=== PATIENT | male | born 1990 | race Caucasian/White ===

== ENCOUNTER → 2018-02-20 15:12 | Outpatient (CLI) | payer OTHER, SELFPAY ==
--- NOTE | 2018-02-20 15:00 | LES_PTH ---
PATIENT: THAO DAVID III LOC: [facility] U#:[id number] AGE/SX: 35/M ROOM: RE02/20/[address]: Dr. Tonny Aquino, : 1990 BED: DIS: SPEC #: [id number] RECD: 02/20/18 17:22 STATUS: MICHELLE TARIK #: [id number] YOUSUF: 02/20/18 15:[address]: Tonny Aquino DEPT: SURGICAL PATHOLOGY RECD BY: Mark Anthony Matute Tissues: Skin of upper extremity and shoulder Procedures: Surgery Specimen Level IV HEADER OPERATION: Punch biopsy PRE-OP DIAGNOSIS: Bleeding nevus, inflamed nevus, less likely cancer TISSUE SUBMITTED: 3 mm punch right shoulder MICROSCOPIC DIAGNOSIS Right shoulder nevus, punch biopsy: Intradermal nevus. Negative for malignancy. SJ:shanique 02/24/18 MICROSCOPIC DESCRIPTION Slides are reviewed. GROSS DESCRIPTION Received in fixative is one container labeled with the patient's name and designated right shoulder nevus. The specimen consists of a punch biopsy of atkinson-white skin measuring 0.2 cm in length and 0.2 cm in diameter. The specimen is totally submitted in one cassette. / SJ:rg 02/23/18 TC:1 CPT: 26012
== END ==
PROVIDERS: Family Provider Family Medicine; PCP Family Medicine; Visit Provider Family Medicine
DX: D22.61 Melanocytic nevi of right upper limb, including shoulder (principal)
CPT/HCPCS: 88305

== ENCOUNTER → 2018-07-09 16:51 | Outpatient (CLI) | payer BC, SELFPAY ==
[2018-07-09 18:09] LABS: Absolute Lymphocyte Count 1.97 X10^3/ul (0.83-4.51); Absolute Neutrophil Count 4.2 X10^3/uL (2.0-7.7); Basophil# 0.04 X10^3/uL; Basophil% 0.6 % (0-1); Eosinophil# 0.06 X10^3/uL; Eosinophils% 0.9 % (0-5); Hematocrit 44.2 % (40-54); Hemoglobin 14.6 g/dl (13.0-16.5); Lymphocyte # 1.97 X10^3/ul (4.0); Lymphocyte % 28.6 % (19-41); Mean Corpuscular Hgb 29.3 pg (27.0-32.0); Mean Corpuscular Volume 88.8 fL (80-94); Mean Platelet Vol. 10.8 fl (6.2-12.0); Monocyte# 0.58 X10^3/uL; Monocyte% 8.4 % (0-10); Neutrophil # 4.22 X10^3/uL (2.7-7.7); Neutrophil % 61.4 % (47-70); Platelet Count 208 K/mm3 (150-450); RBC Distribution Width CV 12.4 % (11.6-14.6); RBC Distribution Width SD 39.4 fl (35.1-43.9); Red Blood Count 4.98 M/mm3 (4.6-6.2); White Blood Count 6.9 K/mm3 (4.4-11.0)
[2018-07-09 18:12] LABS: ALB/GLOB Ratio 1.2 RATIO (0.9-2.4); AST(SGOT) 21 U/L (15-37); Alanine Aminotransfer ALT/SGPT 26 U/L (16-61); Albumin, Serum 4.2 g/dL (3.2-5.0); Alkaline Phosphatase 47 U/L (45-117); Anion Gap 9 (5-15); BUN 11 mg/dL (7-18); BUN/Creat Ratio 9.8 RATIO (10-20); Chloride 105 mmol/L (98-107); Creatinine, Serum 1.12 mg/dL (0.70-1.30); EST Glomerular Filtration Rate 84 mL/min (>60); Est Glom Filt Rate - Afr Amer 102 mL/min (>60); Globulin 3.5 g/dL (2.2-4.2); Glucose 85 mg/dL (74-106); Potassium 3.6 mmol/L (3.5-5.1); Protein, Total 7.7 g/dL (6.4-8.2); Sodium Level 142 mmol/L (136-145)
[2018-07-09 18:15] LABS: POSITIVE COUNT NO; POSITIVE DIFFERENTIAL NO; POSITIVE MORPHOLOGY NO
== END ==
PROVIDERS: Family Provider Family Medicine; PCP Family Medicine; Visit Provider Family Medicine
DX: R10.9 Unspecified abdominal pain (principal); R19.7 Diarrhea, unspecified
CPT/HCPCS: 36415; 80053; 85025

== ENCOUNTER 2020-01-23 13:22 | Emergency (ER) | payer BC, SELFPAY ==
[2019-12-23 12:54] VITALS: BMI 27.9
[2020-01-23 13:23] VITALS: BP 166/94; PULSE 109; RESP 16; TEMP 36.6; O2SAT 100; BMI 26.6
--- NOTE | 2020-01-23 13:38 | CT_ITS ---
STUDY: CT ABDOMEN AND PELVIS WITH CONTRAST REASON FOR EXAM: Male, 30 years old. Abdominal pain. Blood in stool. RADIATION DOSAGE (If Supplied By Facility): CTDIvol = ( 12.48 ) mGy, DLP = ( 603.71 ) mGycm TECHNIQUE: Transaxial images were obtained from the dome of the diaphragm to the symphysis pubis with oral contrast. Oral and amp; IV Gastrografin and amp; 100mL Isovue-300 was administered. Sagittal and coronal images were reconstructed. Individualized dose optimization techniques were used for this CT. COMPARISON: None. FINDINGS: The visualized lung bases are unremarkable. The visualized portions of the heart are within normal limits. Normal liver. Normal gallbladder and extrahepatic biliary system. Normal spleen. Normal pancreas. Normal bilateral adrenal glands. Normal right kidney. Normal left kidney. Normal visualized stomach. Normal small intestine. There are multiple colonic diverticula of the sigmoid consistent with diverticulosis. Otherwise unremarkable colon The appendix is visualized and appears normal. Normal abdominal aorta. Normal inferior vena cava. Normal retroperitoneum. Normal urinary bladder. Normal abdominal wall. Normal osseous structures. CT/Abdomen/Pelvis WITH Contrast IMPRESSION: No definite acute or significant abnormality seen. Electronically Signed: Bimal Pettit MD at 16:16 EST , Service support ,
--- NOTE | 2020-01-23 13:40 | ED.VIS.GEN ---
History of Present Illness Chief Complaint: Abd Pain Informant: Patient Onset: Today Current Severity: Mild Maximum Severity: Moderate Narrative: Patient presents with epigastric abdominal pain that really worsened today. He stated he had some mild pain 4 days ago but it seemed to resolve. Pain recurred again this morning. He did note some blood with his stool this morning as well. Patient states he has had some sinus congestion and yesterday had some pain with deep breath. He related to have a cough and has not had any recurrence of that. Patient reports history of stomach problems. He states he has had prior colonoscopy and a GI follow-through without any definite diagnosis. His grandfather had colon cancer. Past Medical History - Allergies and Home Meds Allergies/Adverse Reactions: Allergies No Known Allergies Allergy (Verified 01/23/20 13:25) Primary Care Physician: Tonny Aquino DO [Primary Care Provider] - Past Medical History: - - Stomach problems Smoking Status: Unknown if ever smoked Review of Systems General: Denies: Chills, Fever Eyes: Denies: Visual changes - bilaterally ENT: Denies: Bilateral ear pain Cardiovascular: Denies: Chest pain Respiratory: Denies: Dyspnea, Cough Gastrointestinal: Reports: Abdominal pain, Hematochezia. Denies: Nausea, Vomiting, Diarrhea Genitourinary: Denies: Dysuria Musculoskeletal: Denies: Swelling, Extremity Pain Skin: Denies: Rash Neurological: Denies: Headache Psych: Denies: Depression, Anxiety Allergy: Denies: Uticaria Physical Exam Vital Signs/Narrative: Vital Signs Temp Pulse Resp BP Pulse Ox 01/23/20 13:23 98 F 109 H 16 166/94 H 100 Inital Vital Signs reviewed: Yes General: Well nourished, Well developed Head: Normocephalic ENT: Moist mucous membranes Neck: Supple Cardiovascular: Regular rate, Regular rhythm Respiratory: No distress, CTA bilaterally Abdomen: Soft, Nontender, Hypoactive bowel sounds Extremities: Nontender Skin: Normal color Neurological: Alert, Oriented x3 Psychological: Normal affect Diagnostic/Tx/Re-eval Impressions Abdomen/Pelvis CT 01/23/20 13:38 IMPRESSION: No definite acute or significant abnormality seen. Electronically Signed: Bimal Pettit MD at 16:16 EST , Service support , 01/23/20 13:38 Abdomen/Pelvis WITH Contrast [CT] Stat Laboratory Results 01/23/20 01/23/20 13:50 13:50 WBC 6.0 RBC 5.26 Hgb 15.6 Hct 46.8 MCV 89.0 MCH 29.7 MCHC 33.3 RDW Std Deviation 39.0 RDW Coeff of Melinda 11.9 Plt Count 214 MPV 10.3 Immature Gran % (Auto) 0.300 Neut % (Auto) 60.3 Lymph % (Auto) 29.7 Hutchinson % (Auto) 8.7 Eos % (Auto) 0.5 Baso % (Auto) 0.5 Absolute Neuts (auto) 3.6 Absolute Lymphs (auto) 1.77 Nucleated RBC % 0 Sodium 140 Potassium 3.7 Chloride 105 Carbon Dioxide 30.0 Anion Gap 5 BUN 14 Creatinine 1.19 Estim Creat Clear Calc 83.40 Est GFR (MDRD) Af Amer 94 Est GFR (MDRD) Non-Af 77 BUN/Creatinine Ratio 11.8 Glucose 96 Calcium 9.2 Total Bilirubin 0.30 Direct Bilirubin 0.12 AST 33 ALT 56 Alkaline Phosphatase 54 Total Protein 7.7 Albumin 4.0 Globulin 3.7 Lipase 203 - Medical Decision Making Patient declined anything for pain while here. Test results are discussed with him. He is reassured with these findings. He now mentions that he is been taking some supplements [id number] as well and is wondering if that may be causing his symptoms. I encouraged him to stop them for a while to see if his symptoms improve. He will follow with his primary care physician. He is to return for worsening symptoms or concerns. ED Disposition - Plan for ED Patient: Disposition: Home or Assisted Living Diagnosis: Abdominal pain Instructions: ABDOMINAL PAIN, Unkown Cause, (Male) Referrals: Herbert Tejada MD [NON-STAFF] - As Needed Tonny Aquino DO [Primary Care Provider] - 5-7 Days
[2020-01-23 14:11] LABS: Absolute Lymphocyte Count 1.77 X10^3/uL (0.83-4.51); Absolute Neutrophil Count 3.6 X10^3/uL (2.0-7.7); Basophil# 0.03 X10^3/uL; Basophil% 0.5 % (0-1); Eosinophil# 0.03 X10^3/uL; Eosinophils% 0.5 % (0-5); Hematocrit 46.8 % (40-54); Hemoglobin 15.6 g/dL (13.0-16.5); Lymphocyte # 1.77 X10^3/ul (4.0); Lymphocyte % 29.7 % (19-41); Mean Corp Hgb Conc 33.3 g/dL (32-36); Mean Corpuscular Hgb 29.7 pg (27.0-32.0); Mean Platelet Vol. 10.3 fl (6.2-12.0); Monocyte# 0.52 X10^3/uL; Monocyte% 8.7 % (0-10); NRBC Flagged by Analyzer 0 % (0-5); Neutrophil # 3.59 X10^3/uL (2.7-7.7); Neutrophil % 60.3 % (47-70); Platelet Count 214 K/mm3 (150-450); RBC Distribution Width CV 11.9 % (11.6-14.6); Red Blood Count 5.26 M/mm3 (4.6-6.2)
[2020-01-23] MEDS: 0.9% Normal Saline 1,000 ML 150 ML IV (14:11)
[2020-01-23 14:27] LABS: AST(SGOT) 33 U/L (15-37); Alanine Aminotransfer ALT/SGPT 56 U/L (16-61); Alkaline Phosphatase 54 U/L (45-117); Anion Gap 5 (5-15); BUN 14 mg/dL (7-18); BUN/Creat Ratio 11.8 RATIO (10-20); Bilirubin, Direct 0.12 mg/dL (0.00-0.30); Calcium,Total 9.2 mg/dL (8.5-10.1); Chloride 105 mmol/L (98-107); Creatinine, Serum 1.19 mg/dL (0.70-1.30); EST Glomerular Filtration Rate 77 mL/min (>60); Est Glom Filt Rate - Afr Amer 94 mL/min (>60); Globulin 3.7 g/dL (2.2-4.2); Glucose 96 mg/dL (74-106); Lipase 203 U/L (73-393); Potassium 3.7 mmol/L (3.5-5.1); Protein, Total 7.7 g/dL (6.4-8.2); Sodium Level 140 mmol/L (136-145)
[2020-01-23 16:35] VITALS: PULSE 78; RESP 18; O2SAT 99
== END 2020-01-23 16:37 | disposition home or self-care (01) ==
PROVIDERS: Emergency Provider Emergency Medicine; PCP Family Medicine
DX: R10.9 Unspecified abdominal pain (principal); R05 Cough; Z80.0 Family history of malignant neoplasm of digestive organs
CPT/HCPCS: 74177; 80048; 80076; 83690; 85025; 96360; 96361; 99283; Q9967; A4216

== ENCOUNTER 2020-11-06 00:24 | Emergency (ER) | payer BC, SELFPAY ==
[2020-02-20 09:05] VITALS: BMI 26.6
[2020-11-06 00:24] VITALS: BP 139/99; PULSE 78; RESP 16; TEMP 36.7; O2SAT 99; BMI 27.6
[2020-11-06 00:27] VITALS: BP 139/99; PULSE 77; RESP 16; TEMP 36.7; O2SAT 97
--- NOTE | 2020-11-06 00:32 | CT_ITS ---
STUDY: CT ABDOMEN AND PELVIS WITH CONTRAST REASON FOR EXAM: Male, 30 years old. RUQ AND RLQ PAIN WITH N/V/D SINCE 2PM RADIATION DOSAGE (If Supplied By Facility): CTDIvol = ( 10.18 ) mGy, DLP = ( 540.73 ) mGycm TECHNIQUE: Transaxial images were obtained from the dome of the diaphragm to the symphysis pubis without oral contrast. IV 100mL Isovue-370 was administered. Sagittal and coronal images were reconstructed. Individualized dose optimization techniques were used for this CT. COMPARISON: None. FINDINGS: The visualized lung bases are unremarkable. The visualized portions of the heart are within normal limits. Normal liver. Normal gallbladder and extrahepatic biliary system. Normal spleen. Normal pancreas. Normal bilateral adrenal glands. Normal right kidney. Normal left kidney. Normal visualized stomach. Multiple loops of small bowel distended within the mid upper abdomen up to a diameter of 2.6 cm. There are loops of small bowel distally with narrowing of the diameter of thickening of the wall consistent with enteritis. Differential diagnosis includes inflammatory bowel disease, correlation with history of Crohn''s disease recommended. The descending colon is decompressed. There is thickening of the wall throughout the transverse colon and at the level of the hepatic and splenic flexure concerning for colitis. The appendix is visualized and appears normal. Normal abdominal aorta. Normal inferior vena cava. Normal retroperitoneum. Normal urinary bladder. Normal abdominal wall. Normal osseous structures. CT/Abdomen/Pelvis W IV Cont ONLY IMPRESSION: Findings consistent with enteritis/enterocolitis, differential diagnosis including inflammatory bowel disease, correlation with history of Crohn''s recommended. Some degree of partial small bowel obstruction related to areas of strictures there may exist in the areas of thickening of the wall of the small bowel to be considered. Electronically Signed: Susan Ramirez MD at 1:45 EST , Service support ,
--- NOTE | 2020-11-06 00:33 | ED.VISSUMM ---
- ER Visit Summary Date of Service: 11/06/20 Chief Complaint: Right upper quadrant abdominal pain History of Present Illness: The patient is a 30 M no significant past medical history. Prior GI symptoms of the colonoscopy without diagnosis. Patient states 2 PM today he had onset of epigastric and right upper quadrant abdominal pain. Associated with nausea, vomiting and diarrhea. He denies any fever or chills. He denies any dysuria. He denies any hematemesis or melena. Denies any abdominal trauma. Denies any prior abdominal surgeries. Denies any recent exposure to anyone with similar symptoms. States pain is cramping. Physical Examination: Young male no acute distress. Vital signs stable afebrile. H EENT exam unremarkable. Neck nontender. Lungs clear to auscultation. Heart regular rhythm no murmur. Abdomen is soft. Nondistended. Normal bowel sounds. He is tender primarily in the right upper quadrant. Mildly in the right lower quadrant. There is no obvious hernias or masses. No obvious signs of obstruction. No signs of trauma. Patient is moving all 4 extremities. There is no edema. Neurovascularly intact. Back is nontender. Neurologically is awake alert with no focal motor deficits. Test Results: CBC shows slightly elevated white count 12.8. Hemoglobin is 17. No bands. Chemistries are normal normal creatinine and gap. Liver enzymes are normal except ALT elevated 77. Lipase is normal at 143. CAT scan the abdomen pelvis with IV contrast was performed and read by the radiologist. Consistent with enteritis. The appendix was visualized and was read as normal. This was read by the radiologist and reviewed by me. Multiple repeat exams the last 1 at 2:18 AM. Patient is doing well. Feeling better after medications and IV fluids. Abdomen is benign. Emergency Department Course and Treatment: Patient with right upper quadrant abdominal pain mild right lower quadrant. Associated nausea, vomiting and diarrhea. This very well may be gastroenteritis. He is tender on exam imaging and labs are being obtained. Will be treated with IV fluids, IV Toradol and Zofran. Treatment Plan: Plenty of fluids and rest. Tylenol for pain. Zofran for nausea. If not improving follow-up with primary care physician if worse return to the ER. Disposition: Discharge Impression: Acute right-sided abdominal pain Nausea, vomiting and diarrhea secondary to viral gastroenteritis This note was generated with [employer] software. It may contain incorrect words, spelling, and punctuation that were not noted in review of the chart prior to signing ED Disposition - Plan for ED Patient: Disposition: Home or Assisted Living Instructions: ED Gastroenteritis, Viral (Adult) Prescriptions: Ondansetron [Zofran Odt] 4 mg PO Q8H PRN PRN #10 tab PRN Reason: Nausea Prescription Printed Referrals: Tonny Aquino DO [Primary Care Provider] - 3-5 Days if not improving Additional Instructions: [place] diet. Increase slowly as tolerated. Plenty of fluids and rest. Zofran as needed for nausea. Tylenol for any pain. Follow-up with your doctor if not improving. Return to the emergency department if you are feeling worse such as increasing pain or intractable vomiting.
[2020-11-06 00:37] LABS: Absolute Lymphocyte Count 2.15 X10^3/uL (0.83-4.51); Absolute Neutrophil Count 9.5 X10^3/uL (2.0-7.7); Basophil# 0.05 X10^3/uL; Basophil% 0.4 % (0-1); Eosinophil# 0.09 X10^3/uL; Eosinophils% 0.7 % (0-5); Hematocrit 50.9 % (40-54); Hemoglobin 17.3 g/dL (13.0-16.5); Lymphocyte # 2.15 X10^3/ul (4.0); Lymphocyte % 16.8 % (19-41); Mean Corpuscular Hgb 30.4 pg (27.0-32.0); Mean Corpuscular Volume 89.3 fL (80-94); Mean Platelet Vol. 9.9 fl (6.2-12.0); Monocyte# 0.98 X10^3/uL; Monocyte% 7.7 % (0-10); NRBC Flagged by Analyzer 0 % (0-5); Neutrophil % 74.1 % (47-70); Platelet Count 244 K/mm3 (150-450); RBC Distribution Width CV 12.2 % (11.6-14.6); RBC Distribution Width SD 39.8 fl (35.1-43.9); White Blood Count 12.8 K/mm3 (4.4-11.0)
[2020-11-06] MEDS: Ketorolac 30 MG/ML Syringe IV (00:38)
[2020-11-06] MEDS: 0.9% Normal Saline 1,000 ML 1000 ML IV (00:38)
[2020-11-06] MEDS: Ondansetron 4 MG/2 ML Vial IV (00:38)
[2020-11-06 00:55] LABS: AST(SGOT) 32 U/L (15-37); Alanine Aminotransfer ALT/SGPT 77 U/L (16-61); Albumin, Serum 4.5 g/dL (3.2-5.0); Alkaline Phosphatase 58 U/L (45-117); Anion Gap 5 (5-15); BUN 17 mg/dL (7-18); BUN/Creat Ratio 15.2 RATIO (10-20); Bilirubin, Direct 0.22 mg/dL (0.00-0.30); Calcium,Total 9.3 mg/dL (8.5-10.1); Chloride 107 mmol/L (98-107); Creatinine, Serum 1.12 mg/dL (0.70-1.30); EST Glomerular Filtration Rate 83 mL/min (>60); Est Glom Filt Rate - Afr Amer 100 mL/min (>60); Estimated Creatinine Clearance 88.61 ml/min; Globulin 3.9 g/dL (2.2-4.2); Glucose 99 mg/dL (74-106); Lipase 143 U/L (73-393); Potassium 3.9 mmol/L (3.5-5.1); Protein, Total 8.4 g/dL (6.4-8.2); Sodium Level 139 mmol/L (136-145)
--- NOTE | 2020-11-06 01:21 | ED.DEP ---
ED Disposition - Plan for ED Patient: Disposition: Home or Assisted Living Instructions: ED Gastroenteritis, Viral (Adult) Prescriptions: Ondansetron [Zofran Odt] 4 mg PO Q8H PRN PRN #10 tab PRN Reason: Nausea Prescription Printed Referrals: Tonny Aqiuno DO [Primary Care Provider] - 3-5 Days if not improving Additional Instructions: [place] diet. Increase slowly as tolerated. Plenty of fluids and rest. Zofran as needed for nausea. Tylenol for any pain. Follow-up with your doctor if not improving. Return to the emergency department if you are feeling worse such as increasing pain or intractable vomiting.
[2020-11-06 02:31] VITALS: BP 111/64; PULSE 78; RESP 18; O2SAT 95
== END 2020-11-06 02:35 | disposition home or self-care (01) ==
PROVIDERS: Emergency Provider Emergency Medicine; PCP Family Medicine
DX: A08.4 Viral intestinal infection, unspecified (principal)
CPT/HCPCS: 74177; 80048; 80076; 83690; 85025; 96361; 96374; 96375; 99283; J7030; Q9967; A4216; J2405

== ENCOUNTER 2020-11-06 09:59 | Inpatient (IN) | payer BC, SELFPAY ==
[2020-11-06 00:24] VITALS: BMI 27.6
[2020-11-06 10:00] VITALS: BP 141/90; PULSE 91; RESP 18; TEMP 36.4; O2SAT 97; BMI 24.2
--- NOTE | 2020-11-06 10:16 | ED.DCSUM_ITS ---
- ER Visit Summary Date of Service: 11/06/20 Chief Complaint: [Abdominal pain] History of Present Illness: The patient is a 30 M [presents to the emergency department complaint of abdominal pain since 2 PM yesterday afternoon. Patient states the pain came on gradually. Patient describes nausea and vomiting that is been frequent and he has had some intermittent diarrhea but no blood in the stool. Patient was seen in the emergency department earlier this morning and had lab work including a CT scan of the abdomen pelvis. Patient was diagnosed with a viral gastroenteritis and discharged home. Patient states he had a mild cough. Patient's had intermittent headaches for the last week. Patient denies any significant body aches or sore throat. He denies any direct exposures to COVID-19 although he states that one of his coworkers wives tested positive. Patient's had low-grade fevers up to 99 6. Patient otherwise has no medical history. Patient's not had any prior surgical history.] Physical Examination: [HEENT-PERRLA, EOMI. Cranial nerves II through XII grossly intact. TMs clear. Mucous membranes moist. No adenopathy. Cardiovascular-regular rate and rhythm without murmur or ectopy Lungs-clear to auscultation, chest wall stable without crepitus or subcu emp hysema Abdomen-normoactive bowel sounds, soft. Patient does have tenderness palpation over the right upper quadrant and right lower quadrant. No rebound, rigidity, or peritoneal signs. Extremities-intact ?4, normal range of motion, normal pulses, atraumatic] Test Results: [CBC with differential obtained showed a slightly elevated white blood cell count of 11.7, hemoglobin 16.6, hematocrit 49.2, and platelets 225. Chemistries were unremarkable. LFTs obtained showed a elevated total bilirubin of 1.2 as well as an elevated ALT of 68 and slight elevated AST of 42. Lactate was normal at 1.0. Gallbladder ultrasound ordered which showed possible adenomyomatosis of the gallbladder wall otherwise nothing acute.] Emergency Department Course and Treatment: [IV line established. Patient was medicated with morphine and Zofran.] Patient continued to have pain and was given a second dose of morphine and Zofran. Stool was ordered for enteric pathogens and those results will be pending Treatment Plan: [Admit for pain control and IV fluids] Disposition: [Admit] Impression: [Intractable abdominal pain Intractable nausea and vomiting Gastroenteritis] This note was generated with [employer] dictation software. It may contain incorrect words, spelling, and punctuation that were not noted in review of the chart prior to signing ED Disposition - Plan for ED Patient: Referrals: Tonny Aquino DO [Primary Care Provider] -
[2020-11-06] MEDS: Ondansetron 4 MG/2 ML Vial IV ×3 (10:30→17:28)
[2020-11-06] MEDS: Morphine 4 MG/ML Syringe IV ×2 (10:30→12:59)
[2020-11-06] MEDS: 0.9% Normal Saline 1,000 ML 125 ML IV ×2 (10:31→23:51)
[2020-11-06 10:44] LABS: Absolute Lymphocyte Count 1.25 X10^3/uL (0.83-4.51); Absolute Neutrophil Count 9.5 X10^3/uL (2.0-7.7); Basophil# 0.02 X10^3/uL; Basophil% 0.2 % (0-1); Eosinophil# 0.02 X10^3/uL; Eosinophils% 0.2 % (0-5); Hematocrit 49.2 % (40-54); Hemoglobin 16.6 g/dL (13.0-16.5); Lymphocyte # 1.25 X10^3/ul (4.0); Lymphocyte % 10.7 % (19-41); Mean Corp Hgb Conc 33.7 g/dL (32-36); Mean Corpuscular Hgb 30.2 pg (27.0-32.0); Mean Corpuscular Volume 89.6 fL (80-94); Mean Platelet Vol. 10.3 fl (6.2-12.0); Monocyte# 0.88 X10^3/uL; Monocyte% 7.5 % (0-10); NRBC Flagged by Analyzer 0 % (0-5); Neutrophil # 9.48 X10^3/uL (2.7-7.7); Neutrophil % 80.9 % (47-70); Platelet Count 225 K/mm3 (150-450); RBC Distribution Width CV 12.1 % (11.6-14.6); RBC Distribution Width SD 39.8 fl (35.1-43.9); Red Blood Count 5.49 M/mm3 (4.6-6.2); White Blood Count 11.7 K/mm3 (4.4-11.0)
[2020-11-06 11:05] LABS: ALB/GLOB Ratio 1.1 RATIO (0.9-2.4); AST(SGOT) 42 U/L (15-37); Alanine Aminotransfer ALT/SGPT 68 U/L (16-61); Albumin, Serum 4.1 g/dL (3.2-5.0); Alkaline Phosphatase 58 U/L (45-117); Anion Gap 4 (5-15); BUN 14 mg/dL (7-18); BUN/Creat Ratio 12.7 RATIO (10-20); Calcium,Total 9.2 mg/dL (8.5-10.1); Chloride 110 mmol/L (98-107); EST Glomerular Filtration Rate 84 mL/min (>60); Est Glom Filt Rate - Afr Amer 102 mL/min (>60); Estimated Creatinine Clearance 90.22 ml/min; Globulin 3.9 g/dL (2.2-4.2); Glucose 96 mg/dL (74-106); Potassium 4.4 mmol/L (3.5-5.1); Sodium Level 140 mmol/L (136-145)
--- NOTE | 2020-11-06 11:08 | US_ITS ---
STUDY: ABDOMINAL ULTRASOUND - RIGHT UPPER QUADRANT REASON FOR VISIT: Male, 30 years old ABDOMEN PAIN 1 DAY GETTING WORSE MIDLINE AND RLQ TECHNIQUE: Ultrasound evaluation of the right upper quadrant was performed with real-time and static frye-scale imaging. TECHNICAL QUALITY: Limited. Examination limited by bowel gas. COMPARISON: Comparison is made with prior CT scan done and pelvis done earlier today. FINDINGS: Liver: The liver measures 14.6 cm. There is normal echogenicity of the liver. The bile ducts are within normal limits. There is hepatic color flow. The direction of portal flow is hepatopetal. There is no demonstrated mass lesion. Gallbladder: Normal distended gallbladder. The gallbladder wall measures 2.7 mm. There is a negative sonographic Pitts''s sign. There is no pericholecystic fluid. There are no gallstones. Ringdown artifact is seen arising from the gallbladder wall suggestive of possible adenomyomatosis. Common Bile Duct (C.B.D.): The common bile duct measures 4.2 mm. Pancreas: There is nonvisualization of the pancreas due to overlying bowel gas. Right Kidney: Normal size of the right kidney. The right kidney measures 9.7 cm x 5.8 cm x 4.4 cm. Normal renal cortex. The right cortex measures 1.1 cm. There is no demonstrated renal mass or cyst. There is no right hydronephrosis. US/Gallbladder IMPRESSION: No evidence of gallstones. Findings suggestive of adenomyomatosis of the gallbladder wall. Electronically Signed: Conor Galvan, at 12:35 EST , Service support ,
[2020-11-06 13:05] VITALS: BP 119/74; PULSE 74; RESP 16; TEMP 36.4; O2SAT 95
--- NOTE | 2020-11-06 13:10 | PCM.HP.STD ---
Problem List (1) Intractable nausea and vomiting Status: Acute (2) Acute enterocolitis Status: Acute History of Present Illness Date of Admission: 11/06/20 Chief Complaint: Abdominal pain, nausea and vomiting. The patient is a 30 year old M with no significant past medical history presented to the emergency room because of abdominal pain, nausea and vomiting. His symptoms started yesterday afternoon with abdominal pain, epigastric and right-sided abdominal pain, intermittent, crampy pain, 9 out of 10 in severity, aggravated by any type of movement, associated with nausea and vomiting as well as mild diarrhea. He denied fever or chills. He denied sick contacts or recent travel. Earlier today, he came to the ER after midnight, had a CAT scan done and received IV fluids and pain medication and he was discharged home. In the emergency department, his vital signs were stable, he was afebrile. Routine blood work was remarkable for mild leukocytosis, otherwise normal. LFT revealed slight elevated bilirubin and liver transaminases. Alk phos was normal. Lipase was normal earlier today. CT scan abdomen and pelvis with IV contrast done this morning during the first presentation to ED and revealed findings consistent with enteritis/enterocolitis with some degree of partial small bowel obstruction related to area of stricture. Ultrasound gallbladder ultrasound normal done and showed normal gallbladder, no gallstones, no evidence of acute cystitis, CBD diameter was normal, revealed possible adenomyomatosis. Patient is being admitted for acute enteritis/enterocolitis with questionable some degree of partial small bowel obstruction due to stricture as well as intractable nausea and vomiting. Past Medical History Medical History: Medical History (Last Reviewed 02/20/20 @ 09:09 by Sarahi Naranjo) Diarrhea R19.7 Fatigue R53.83 Hay fever J30.1 Severe headache R51 Allergies No Known Allergies Allergy (Verified 11/06/20 00:27) Home Medications: Ambulatory Orders Medication Instructions Recorded Ondansetron [Zofran Odt] 4 mg PO Q8H PRN PRN #10 tab 11/06/20 Surgical History: no surgical history Psychiatric History: No pertinent psych hx Lives: Spouse/ Significant Other Smoking Status: Never smoker Alcohol: None Drugs: None - *Family History Maternal History Items: No pertinent history Paternal History Items: Cancer - Colon cancer, 11 years ago. Review of Systems Constitutional: Reports: Anorexia. Denies: Chills, Fever, Weakness Eyes: Denies: Blurred vision, Double vision, Drainage, Redness HEENT: Denies: Difficulty Hearing, Ear Pain, Eye Pain, Nasal Congestion, Sore Throat Cardiovascular: Denies: Chest Pain, Claudication, Chest Pressure, Heaviness, Light Headedness, Paroxysmal Noc. Dyspnea, Syncope Respiratory: Denies: Cough, Pleuritic Pain, Shortness of Breath, Sputum production, Wheezing Gastrointestinal: Reports: Abdominal Pain, Diarrhea, Nausea, Vomiting. Denies: Constipation, Hematochezia, Melena Genitourinary: Denies: Dysuria, Frequency, Hematuria Musculoskeletal: Denies: Arm Pain, Back Pain, Foot Pain Skin: Denies: Dryness, Rash Neurological: Denies: Balance problems, Blurred vision, Double vision, Slurred speech, Confusion, Headaches, Incoordination Psychiatric: Denies: Anxiety, Depression Endocrine: Denies: Change in Body Habitus, Polydipsia, Polyuria VTE Information - Inpt Only VTE Present on Admission: No VTE Mechan Device Prophylaxis: None VTE Pharm Prophylaxis ordered?: No - Physical Exam Vitals/I&O's: Vital Signs Temp Pulse Resp BP Pulse Ox 97.6 F L 91 18 141/90 H 97 11/06/20 10:00 11/06/20 10:00 11/06/20 10:00 11/06/20 10:00 11/06/20 10:00 Oxygen Delivery Method Room Air Weight: 150 lb Body Mass Index (BMI) 24.2 Intake and Output for Last 24 Hours 11/04/20 11/05/20 11/06/20 23:59 23:59 23:59 Intake Total 1000 / 1000 Balance 1000 / 1000 General: Alert, Oriented x3, Cooperative, No apparent distress HEENT: PERRLA, EOMI, Normocephalic Oral: Moist Mucosa, No Gingival or Mucosal Lesions/ Ulcerations Neck: Supple, No JVD, Negative Carotid Bruits, Trachea Midline, Thyroid Normal Size and Texture Lungs: Clear to auscultation, Normal air movement, No rhonchi, No wheeze, No rales Cardiovascular: Regular rate, Regular Rhythm, Normal S1, Normal S2, No murmurs, No Ectopic Activity, PMI Normal Abdomen: Bowel Sounds Present, Soft, Non-Distended, No Hepato-splenomegaly, Tender - Epigastric and right abdominal tenderness, no guarding or rigidity. Extremities: No clubbing, No cyanosis, No edema Skin: No rashes, No breakdown Lymphatic: No Cervical, Supraclavicular, or Inguinal Adenopathy Neurological: Cranial nerves II-XII grossly intact, Motor Exam 5/5 strength throughout Psych/Mental Status: Normal Affect, Appropriate, Alert and oriented to time, place, person, mood and affect Microbiology Past 72 Hours 11/06/20 10:30 Mucosa - Nose SARS-CoV-2 Antigen (Rapid) - Final Laboratory Results 11/06/20 10:30: WBC 11.7 H, RBC 5.49, Hgb 16.6 H, Hct 49.2, MCV 89.6, MCH 30.2, MCHC 33.7, RDW Std Deviation 39.8, RDW Coeff of Melinda 12.1, Plt Count 225, MPV 10.3, Immature Gran % (Auto) 0.500, Neut % (Auto) 80.9 H, Lymph % (Auto) 10.7 L, [place] % (Auto) 7.5, Eos % (Auto) 0.2, Baso % (Auto) 0.2, Absolute Neuts (auto) 9.5 H, Absolute Lymphs (auto) 1.25, Nucleated RBC % 0 11/06/20 10:30: Sodium 140, Potassium 4.4, Chloride 110 H, Carbon Dioxide 26.0, Anion Gap 4 L, BUN 14, Creatinine 1.10, Estim Creat Clear Calc 90.22, Est GFR (MDRD) Af Amer 102, Est GFR (MDRD) Non-Af 84, BUN/Creatinine Ratio 12.7, Glucose 96, Calcium 9.2, Total Bilirubin 1.20 H, AST 42 H, ALT 68 H, Alkaline Phosphatase 58, Total Protein 8.0, Albumin 4.1, Globulin 3.9, Albumin/Globulin Ratio 1.1 11/06/20 10:30: Lactic Acid 1.0 Clinical Impression(s) from Imaging Studies Gallbladder Ultrasound 11/06/20 11:08 IMPRESSION: No evidence of gallstones. Findings suggestive of adenomyomatosis of the gallbladder wall. Electronically Signed: Conor Galvan, at 12:35 EST , Service support , . CT/Abdomen/Pelvis W IV Cont ONLY IMPRESSION: Findings consistent with enteritis/enterocolitis, differential diagnosis including inflammatory bowel disease, correlation with history of Crohn''s recommended. Some degree of partial small bowel obstruction related to areas of strictures there may exist in the areas of thickening of the wall of the small bowel to be considered. Electronically Signed: Susan Ramirez MD at 1:45 EST , Service support , Current Medications Sodium Chloride () 1,000 mls @ 125 mls/hr IV .Q8H DENIA Last Infusion: 11/06/20 12:43 Dose: Infused Documented by: Assessment/Plan All Active Problems (Last Reviewed 02/20/20 @ 09:09 by Sarahi Naranjo) Intractable nausea and vomiting (Acute) Acute enterocolitis (Acute) This is a 30 years old male patient presented to the emergency room because of persistent abdominal pain with nausea and vomiting after he came to the emergency department earlier today, found to have acute enteritis and enterocolitis on CT scan abdomen as well as some degree of partial small bowel obstruction related to area of stricture and he is being admitted for evaluation and treatment. #1 acute enteritis/enterocolitis: Differential diagnosis includes viral gastroenteritis, bacterial gastroenteritis or inflammatory bowel disease. Patient denied any family history of Crohn's or ulcerative colitis but he mentioned that his father had a colon cancer and he [address] scan abdomen and pelvis as well as ultrasound gallbladder reviewed as above. LFT was normal elevated. Lipase was normal this morning. Plan: Admit to MedSurg floor, keep on clear liquids, IV fluids, IV morphine as needed, IV Pepcid twice daily, IV antiemetics, start IV Flagyl and ciprofloxacin, stool for C. difficile, stool for enteric pathogens, ESR, CRP, general surgery consult, repeat CBC and CMP tomorrow morning. #2 questionable partial small bowel obstruction due to stricture: Plan for clear liquids, IV fluids, IV morphine as needed, general surgery consult, other plan as above. #3 intractable nausea and vomiting: Due to #1 and #2. Plan for IV fluids, IV antiemetics, IV Pepcid twice daily. #4 DVT prophylaxis: Low risk patient, no prophylaxis indicated. This note was generated with [employer] dictation software. It may contain incorrect words, spelling, and punctuation that were not noted in checking the note before signing. Inpatient E&M: 21412 Init Hosp L2
[2020-11-06 13:38] VITALS: BP 118/62; PULSE 76; RESP 18; TEMP 36.1; O2SAT 99
[2020-11-06 14:16] VITALS: BP 134/85; PULSE 73; RESP 16; TEMP 37; O2SAT 96
[2020-11-06 14:20] VITALS: BMI 24.2
[2020-11-06 14:22] VITALS: BMI 27.9
[2020-11-06] MEDS: 0.9% Normal Saline 1,000 ML 100 ML IV (14:36)
[2020-11-06] MEDS: 0.9% Saline Lock 10 ML Syringe IV ×3 (14:36→17:28)
[2020-11-06 14:47] LABS: Erythrocyte Sedimentation Rate 6 mm/hr (0-15)
[2020-11-06 14:50] LABS: CRP < 2.90 mg/L (0.0-3.0)
[2020-11-06 15:05] VITALS: O2SAT 96
--- NOTE | 2020-11-06 15:26 | PCM.CONS.GEN ---
Problem List (1) Intractable nausea and vomiting Status: Acute (2) Acute enterocolitis Status: Acute Reason for Consult Date of Consultation: 11/06/20 Reason for Consultation: Abdominal pain, nausea and vomiting History of Present Illness: The patient is a 30 year old M who presented with 1 day history of nausea, vomiting and abdominal pain. Patient presented at midnight to the ED with current symptoms. A CT scan of the abdomen/pelvis demonstrated possible inflammatory bowel disease, enteritis/enterocolitis, possible small bowel obstruction. Patient was diagnosed with gastroenteritis. IV hydration and pain medication was given and patient was discharged. Patient noted the pain became worse and he presented again to the ED around 09:30 this morning. He continued to note nausea, vomiting, and abdominal cramping especially in the epigastric/right upper quadrant radiating into the right lower quadrant. Patient denies blood in his stool. He notes mucous in his stool. He notes having a colonoscopy approximately 10 years ago. He denies having polyps or any other abnormalities. He notes having a colonoscopy here in [place]. He notes a grandfather who had colon cancer. He denies any family members with inflammatory bowel disease. He notes being tested for Crohn's disease years ago and testing returned negative. He denies eating foods out of the ordinary or eating at a buffet. He denies cardiac history or pulmonary history. He denies any previous abdominal surgeries previously. He had a gallbladder u/s which demonstrated adenomyomatosis of the gallbladder wall. No acute pathology noted. He denies urinary symptoms. He denies recent weight loss. Patient also notes he has had stomach issues for many years without any diagnosis. Looking back through records, patient was evaluated with similar symptoms in January of this year and in 2013. Labs on admission WBC 11.7, Hgb 16.6, Hct 49.2, Plt 225. Bilirubin 1.20, AST 42, ALT 68. Past Medical History Medical History: Medical History (Last Reviewed 11/06/20 @ 15:55 by Svitlana BARROS PAJanesC) Diarrhea R19.7 Fatigue R53.83 Hay fever J30.1 Severe headache R51 Allergies No Known Allergies Allergy (Verified 11/06/20 00:27) Home Medications: Ambulatory Orders Medication Instructions Recorded Ondansetron [Zofran Odt] 4 mg PO Q8H PRN PRN #10 tab 11/06/20 Surgical History: no surgical history Psychiatric History: No pertinent psych hx Lives: Spouse/ Significant Other Smoking Status: Never smoker Tobacco Use: Non-smoker Alcohol: None Drugs: None - *Family History Maternal History Items: No pertinent history Paternal History Items: Cancer - Colon cancer, 11 years ago. Review of Systems Constitutional: Reports: Anorexia, Fever HEENT: Denies: Head Aches, Sinus Congestion, Sinus Drainage Cardiovascular: Denies: Chest Pain, Palpitations Respiratory: Denies: Cough, Shortness of breath at rest, Sputum production Gastrointestinal: Reports: Abdominal Pain, Diarrhea, Nausea, Vomiting. Denies: Hematemesis, Hematochezia, Melena Genitourinary: Denies: Dysuria Musculoskeletal: Denies: Joint Pain, Joint Tenderness Skin: Denies: Rash, Wounds Neurological: Denies: Numbness, Tingling, Focal weakness Psychiatric: Denies: Anxiety, Depression, Homicidal Ideations, Suicidal Ideations Hematologic/ Lymphatic: Denies: Easy Bruising, Easy Bleeding Patient Problems: Active and Suspected Problems (Last Reviewed 02/20/20 @ 09:09 by Sarahi Naranjo) Intractable nausea and vomiting (Acute) Acute enterocolitis (Acute) - Physical Exam Vitals/I&O's: Vital Signs Temp Pulse Resp BP Pulse Ox 98.6 F 73 16 134/85 H 96 11/06/20 14:16 11/06/20 14:16 11/06/20 14:16 11/06/20 14:16 11/06/20 14:16 Oxygen Delivery Method Room Air Weight: 173 lb Body Mass Index (BMI) 27.9 Intake and Output for Last 24 Hours 11/04/20 11/05/20 11/06/20 23:59 23:59 23:59 Intake Total 1000 / 1000 Balance 1000 / 1000 General: Alert, Oriented x3, Cooperative HEENT: Atraumatic, PERRLA, EOMI, Normocephalic Neck: Supple, No JVD, Negative Carotid Bruits Lungs: Clear to auscultation, Normal air movement Cardiovascular: Regular rate, No murmurs Abdomen: Soft, Non Tender, Hypoactive Bowel Sounds Extremities: No edema, Capillary Refill Less than 3 Seconds Skin: No rashes, No breakdown Musculoskeletal: No Tenderness to Palpation of Joints or Extremities Neurological: Cranial nerves II-XII grossly intact, Neuro grossly intact Psych/Mental Status: Normal Affect, Appropriate Microbiology Past 72 Hours 11/06/20 10:30 Mucosa - Nose SARS-CoV-2 Antigen (Rapid) - Final Laboratory Results 11/06/20 10:30: WBC 11.7 H, RBC 5.49, Hgb 16.6 H, Hct 49.2, MCV 89.6, MCH 30.2, MCHC 33.7, RDW Std Deviation 39.8, RDW Coeff of Melinda 12.1, Plt Count 225, MPV 10.3, Immature Gran % (Auto) 0.500, Neut % (Auto) 80.9 H, Lymph % (Auto) 10.7 L, [place] % (Auto) 7.5, Eos % (Auto) 0.2, Baso % (Auto) 0.2, Absolute Neuts (auto) 9.5 H, Absolute Lymphs (auto) 1.25, Nucleated RBC % 0 11/06/20 10:30: Sodium 140, Potassium 4.4, Chloride 110 H, Carbon Dioxide 26.0, Anion Gap 4 L, BUN 14, Creatinine 1.10, Estim Creat Clear Calc 90.22, Est GFR (MDRD) Af Amer 102, Est GFR (MDRD) Non-Af 84, BUN/Creatinine Ratio 12.7, Glucose 96, Calcium 9.2, Total Bilirubin 1.20 H, AST 42 H, ALT 68 H, Alkaline Phosphatase 58, Total Protein 8.0, Albumin 4.1, Globulin 3.9, Albumin/Globulin Ratio 1.1 11/06/20 10:30: Lactic Acid 1.0 11/06/20 10:30: ESR 6 11/06/20 10:30: C-React Prot Ext Range < 2.90 Current Medications Acetaminophen (Acetaminophen 325 Mg Tablet) 650 mg PO Q6H PRN PRN PRN Reason: Pain Score 1-10/Temp > 100.7 F Sodium Chloride () 1,000 mls @ 100 mls/hr IV .Q10H [facility]IA Last Admin: 11/06/20 14:36 Dose: 100 mls/hr Documented by: Famotidine 20 mg/ Sodium (Chloride) 10 mls @ 300 mls/hr IV Q12 DENIA Metronidazole (Flagyl) 500 mg in 100 mls @ 100 mls/hr IV Q8 DENIA Ciprofloxacin (Cipro) 400 mg in 200 mls @ 200 mls/hr IV Q12 [facility] Morphine Sulfate (Morphine 2 Mg/Ml Syringe) 1 - 2 mg IV Q3H PRN PRN PRN Reason: Pain Score 6-10 Nutritional Formula (Lactose Free) (Ensure Clear 120 Ml Liquid) 120 ml PO 4X/DAY DENIA Ondansetron HCl (Ondansetron 4 Mg/2 Ml Vial) 4 mg IV Q8H PRN PRN PRN Reason: NAUSEA/VOMITING Sodium Chloride (0.9% Saline Lock 10 Ml Syringe) 10 - 40 ml IV UD PRN PRN Reason: SALINE FLUSH Last Admin: 11/06/20 14:36 Dose: 10 ml Documented by: Assessment/Plan All Active Problems (Last Reviewed 02/20/20 @ 09:09 by Sarahi Naranjo) Intractable nausea and vomiting (Acute) Acute enterocolitis (Acute) I have been consulted in conjunction with Dr. Sinclair. He has independently evaluated this patient. Impression: 30 y/o M with history of nausea, vomiting and abdominal pain. Partial small bowel obstruction. ? inflammatory bowel disease versus irritable bowel syndrome versus gastroenteritis versus unknown etiology. No family history of inflammatory bowel disease. No prior abdominal surgeries. Plan: I have discussed this patient with Dr. Sinclair. Recommend repeat CT scan of the ab/pel tomorrow with IV and oral contrast. No surgical intervention at this time. Recommend IV hydration, antibiotics, bowel rest and observation. Patient has had the opportunity to ask and have questions answered. Patient verbally understands and agrees with the plan. Thank you for allowing us to participate in this patient's care. Office Visits / Consults: [id number] IP Consult L3
[2020-11-06] MEDS: metroNIDAZOLE 500 MG/100 ML BAG 100 MG IV ×2 (15:27→22:16)
[2020-11-06] MEDS: Ciprofloxacin 400 MG/200 ML BAG 200 MG IV ×2 (16:33→21:01)
[2020-11-06] MEDS: Ensure Clear 120 ML Liquid PO (16:40)
[2020-11-06] MEDS: Morphine 2 MG/ML Syringe IV (16:40)
[2020-11-06] MEDS: proMETHazine 25 MG/ML Syringe 12.5 MG IV (18:12)
[2020-11-06 20:28] VITALS: BP 114/69; PULSE 80; RESP 16; TEMP 36.6; O2SAT 97
[2020-11-06] MEDS: Acetaminophen 325 MG Tablet 650 MG PO (20:36)
[2020-11-06] MEDS: Famotidine 200 MG/20 ML MDV 20 MG in 0.9% Normal Saline (Pres. free 8 ML 300 MG IV (20:51)
[2020-11-07 02:22] VITALS: BP 108/71; PULSE 74; RESP 16; TEMP 36.4; O2SAT 95
[2020-11-07] MEDS: Ondansetron 4 MG/2 ML Vial IV ×2 (02:30→16:26)
[2020-11-07] MEDS: Morphine 2 MG/ML Syringe IV ×3 (02:30→19:41)
[2020-11-07] MEDS: metroNIDAZOLE 500 MG/100 ML BAG 100 MG IV ×3 (05:36→22:47)
[2020-11-07] MEDS: Acetaminophen 325 MG Tablet 650 MG PO ×2 (05:39→12:44)
[2020-11-07] MEDS: 0.9% Normal Saline 1,000 ML 125 ML IV ×2 (06:51→20:28)
[2020-11-07 07:09] LABS: Absolute Lymphocyte Count 2.63 X10^3/uL (0.83-4.51); Absolute Neutrophil Count 3.2 X10^3/uL (2.0-7.7); Basophil# 0.04 X10^3/uL; Basophil% 0.6 % (0-1); Eosinophil# 0.12 X10^3/uL; Eosinophils% 1.8 % (0-5); Hematocrit 39.8 % (40-54); Hemoglobin 12.8 g/dL (13.0-16.5); Lymphocyte # 2.63 X10^3/ul (4.0); Lymphocyte % 39.6 % (19-41); Mean Corp Hgb Conc 32.2 g/dL (32-36); Mean Corpuscular Hgb 29.6 pg (27.0-32.0); Mean Corpuscular Volume 92.1 fL (80-94); Mean Platelet Vol. 10.4 fl (6.2-12.0); Monocyte# 0.67 X10^3/uL; Monocyte% 10.1 % (0-10); NRBC Flagged by Analyzer 0 % (0-5); Neutrophil # 3.16 X10^3/uL (2.7-7.7); Neutrophil % 47.6 % (47-70); Platelet Count 182 K/mm3 (150-450); RBC Distribution Width CV 12.1 % (11.6-14.6); RBC Distribution Width SD 41.4 fl (35.1-43.9); Red Blood Count 4.32 M/mm3 (4.6-6.2); White Blood Count 6.6 K/mm3 (4.4-11.0)
[2020-11-07 07:22] VITALS: O2SAT 97
[2020-11-07 07:36] LABS: ALB/GLOB Ratio 1.1 RATIO (0.9-2.4); AST(SGOT) 26 U/L (15-37); Alanine Aminotransfer ALT/SGPT 48 U/L (16-61); Albumin, Serum 3.1 g/dL (3.2-5.0); Alkaline Phosphatase 42 U/L (45-117); Anion Gap 3 (5-15); BUN 8 mg/dL (7-18); BUN/Creat Ratio 7.4 RATIO (10-20); Calcium,Total 7.9 mg/dL (8.5-10.1); Chloride 110 mmol/L (98-107); Creatinine, Serum 1.08 mg/dL (0.70-1.30); EST Glomerular Filtration Rate 86 mL/min (>60); Est Glom Filt Rate - Afr Amer 104 mL/min (>60); Estimated Creatinine Clearance 91.89 ml/min; Globulin 2.9 g/dL (2.2-4.2); Glucose 89 mg/dL (74-106); Potassium 3.7 mmol/L (3.5-5.1); Sodium Level 142 mmol/L (136-145)
[2020-11-07 07:40] VITALS: BP 113/68; PULSE 66; RESP 16; TEMP 36.6; O2SAT 95
--- NOTE | 2020-11-07 07:50 | PCM.PN.HOSP ---
Patient Problems: Active and Suspected Problems (Last Reviewed 11/06/20 @ 15:55 by Svitlana BARROS, PAAnne) Intractable nausea and vomiting (Acute) Acute enterocolitis (Acute) Reason for Visit: Follow-up for acute abdominal pain. Objective: Blood pressure and heart rate normal range. No fever Patient had CT abdomen pelvis with oral and IV contrast in the morning. Patient denies history of C. difficile colitis, Crohn's disease or ulcerative colitis. Patient has history of IBS. No bowel movement for last 2 days. Stool for C. difficile and enteric bacteriology panel are pending. Physical exam General: Alert, Oriented x3, Cooperative HEENT: Atraumatic, PERRLA, EOMI, Normocephalic Oral: No Gingival or Mucosal Lesions/ Ulcerations Neck: Supple, No JVD, Negative Carotid Bruits Lungs: Air entry diminished in bilateral lung bases. No crepitation/rhonchi Cardiovascular: Regular rate, Regular Rhythm, Normal S1, Normal S2, No murmurs Abdomen: Bowel Sounds Present, Soft, Non Tender, Non-Distended : No renal angle tenderness. No suprapubic tenderness. Extremities: No edema, Capillary Refill Less than 3 Seconds Skin: No rashes, No breakdown Musculoskeletal: No Tenderness to Palpation of Joints or Extremities Neurological: Cranial nerves II-XII grossly intact, Deep Tendon Reflexes 2+/4 and Symmetrical, Neuro grossly intact Psych/Mental Status: Normal Affect, Appropriate. Vitals/I&O's: Vital Signs Temp Pulse Resp BP Pulse Ox 97.5 F L 74 16 108/71 97 11/07/20 02:22 11/07/20 02:22 11/07/20 02:22 11/07/20 02:22 11/07/20 07:22 Oxygen Delivery Method Room Air Weight: 173 lb Body Mass Index (BMI) 27.9 Intake and Output for Last 24 Hours 11/05/20 11/06/20 11/07/20 23:59 23:59 23:59 Intake Total 3498.75 / 3498.75 1125 / 1125 Output Total 1925 / 1925 700 / 700 Balance 1573.75 / 1573.75 425 / 425 Microbiology Past 72 Hours 11/06/20 10:30 Mucosa - Nose SARS-CoV-2 Antigen (Rapid) - Final Laboratory Results 11/06/20 10:30: WBC 11.7 H, RBC 5.49, Hgb 16.6 H, Hct 49.2, MCV 89.6, MCH 30.2, MCHC 33.7, RDW Std Deviation 39.8, RDW Coeff of Melinda 12.1, Plt Count 225, MPV 10.3, Immature Gran % (Auto) 0.500, Neut % (Auto) 80.9 H, Lymph % (Auto) 10.7 L, [place] % (Auto) 7.5, Eos % (Auto) 0.2, Baso % (Auto) 0.2, Absolute Neuts (auto) 9.5 H, Absolute Lymphs (auto) 1.25, Nucleated RBC % 0 11/06/20 10:30: Sodium 140, Potassium 4.4, Chloride 110 H, Carbon Dioxide 26.0, Anion Gap 4 L, BUN 14, Creatinine 1.10, Estim Creat Clear Calc 90.22, Est GFR (MDRD) Af Amer 102, Est GFR (MDRD) Non-Af 84, BUN/Creatinine Ratio 12.7, Glucose 96, Calcium 9.2, Total Bilirubin 1.20 H, AST 42 H, ALT 68 H, Alkaline Phosphatase 58, Total Protein 8.0, Albumin 4.1, Globulin 3.9, Albumin/Globulin Ratio 1.1 11/06/20 10:30: Lactic Acid 1.0 11/06/20 10:30: ESR 6 11/06/20 10:30: C-React Prot Ext Range < 2.90 11/07/20 06:34: WBC 6.6, RBC 4.32 L, Hgb 12.8 L, Hct 39.8 L, MCV 92.1, MCH 29.6, MCHC 32.2, RDW Std Deviation 41.4, RDW Coeff of Melinda 12.1, Plt Count 182, MPV 10.4, Immature Gran % (Auto) 0.300, Neut % (Auto) 47.6, Lymph % (Auto) 39.6, [place] % (Auto) 10.1 H, Eos % (Auto) 1.8, Baso % (Auto) 0.6, Absolute Neuts (auto) 3.2, Absolute Lymphs (auto) 2.63, Nucleated RBC % 0 11/07/20 06:34: Sodium 142, Potassium 3.7, Chloride 110 H, Carbon Dioxide 29.0, Anion Gap 3 L, BUN 8, Creatinine 1.08, Estim Creat Clear Calc 91.89, Est GFR (MDRD) Af Amer 104, Est GFR (MDRD) Non-Af 86, BUN/Creatinine Ratio 7.4 L, Glucose 89, Calcium 7.9 L, Total Bilirubin 0.80, AST 26, ALT 48, Alkaline Phosphatase 42 L, Total Protein 6.0 L, Albumin 3.1 L, Globulin 2.9, Albumin/Globulin Ratio 1.1 Current Medications Acetaminophen (Acetaminophen 325 Mg Tablet) 650 mg PO Q6H PRN PRN PRN Reason: Pain Score 1-10/Temp > 100.7 F Last Admin: 11/07/20 05:39 Dose: 650 mg Documented by: Sodium Chloride () 1,000 mls @ 125 mls/hr IV .Q8H [facility] Last Admin: 11/07/20 06:51 Dose: 125 mls/hr Documented by: Famotidine 20 mg/ Sodium (Chloride) 10 mls @ 300 mls/hr IV Q12 [facility] Last Infusion: 11/06/20 20:53 Dose: Infused Documented by: Metronidazole (Flagyl) 500 mg in 100 mls @ 100 mls/hr IV Q8 [facility] Last Infusion: 11/07/20 06:36 Dose: Infused Documented by: Ciprofloxacin (Cipro) 400 mg in 200 mls @ 200 mls/hr IV Q12 [facility] Last Infusion: 11/06/20 22:01 Dose: Infused Documented by: Iopamidol (Contrast Allergy Safety Check) 0 ml IV X1 [facility] Last Admin: 11/06/20 16:32 Dose: Not Given Documented by: Morphine Sulfate (Morphine 2 Mg/Ml Syringe) 1 - 2 mg IV Q3H PRN PRN PRN Reason: Pain Score 6-10 Last Admin: 11/07/20 07:41 Dose: 2 mg Documented by: Nutritional Formula (Lactose Free) (Ensure Clear 120 Ml Liquid) 120 ml PO 4X/DAY [facility] Last Admin: 11/06/20 20:45 Dose: Not Given Documented by: Ondansetron HCl (Ondansetron 4 Mg/2 Ml Vial) 4 mg IV Q8H PRN PRN PRN Reason: NAUSEA/VOMITING Last Admin: 11/07/20 02:30 Dose: 4 mg Documented by: Promethazine HCl (Promethazine 25 Mg/Ml Syringe) 12.5 mg IV Q6H PRN PRN PRN Reason: NAUSEA/VOMITING Last Admin: 11/06/20 18:12 Dose: 12.5 mg Documented by: Sodium Chloride (0.9% Saline Lock 10 Ml Syringe) 10 - 40 ml IV UD PRN PRN Reason: SALINE FLUSH Last Admin: 11/06/20 17:28 Dose: 10 ml Documented by: STROKE Vital Signs/Narrative: Vital Signs Pulse Ox 11/07/20 07:22 97 Medical Necessity - Tobacco Use Smoking Status: Never smoker Tobacco Use: Non-smoker Assessment/Plan All Active Problems (Last Reviewed 11/06/20 @ 15:55 by Svitlana BARROS PA-C) Intractable nausea and vomiting (Acute) Acute enterocolitis (Acute) This is a 30 years old male patient presented to the emergency room because of persistent abdominal pain with nausea and vomiting on day of admission, found to have acute enteritis and enterocolitis on CT scan abdomen as well as some degree of partial small bowel obstruction related to area of stricture and he is being admitted for evaluation and treatment. #1 acute enteritis/enterocolitis: Patient did not had bowel movement for stool specimen for last [address] abdomen and pelvis with oral and IV contrast shows small bowels are unremarkable. No family history of Crohn's disease, ulcerative colitis but father had colon cancer and 11 years ago. Plan for EGD and colonoscopy tomorrow a.m. by surgery. Repeat liver chemistry shows normalization of transaminases. #2 partial small bowel obstruction due to stricture.and repeat CT abdomen and pelvis. #3 intractable nausea and vomiting: Resolved. Continue IV fluid, IV antiemetics, IV Pepcid twice daily. On clear liquid diets #4 DVT prophylaxis: Low risk patient, no prophylaxis indicated. Clinical Impression(s) from Imaging Studies Gallbladder Ultrasound 11/06/20 11:08 IMPRESSION: No evidence of gallstones. Findings suggestive of adenomyomatosis of the gallbladder wall. Abdomen/Pelvis CT 11/07/20 10:00 IMPRESSION: Mild degree of right basilar atelectasis. The small bowel loops are unremarkable at this time. Electronically Signed: Conor Galvan, at 11:19 EST , Service support , Inpatient E&M: [id number] Subs Hosp L2
[2020-11-07] MEDS: proMETHazine 25 MG/ML Syringe 12.5 MG IV ×2 (08:49→19:40)
[2020-11-07] MEDS: Ciprofloxacin 400 MG/200 ML BAG 200 MG IV ×2 (08:51→21:08)
[2020-11-07] MEDS: Famotidine 200 MG/20 ML MDV 20 MG in 0.9% Normal Saline (Pres. free 8 ML 300 MG IV ×2 (08:55→21:03)
[2020-11-07] MEDS: 0.9% Saline Lock 10 ML Syringe IV ×4 (08:58→19:38)
--- NOTE | 2020-11-07 10:00 | CT_ITS ---
STUDY: CT ABDOMEN AND PELVIS WITH CONTRAST REASON FOR EXAM: Male, 30 years old. ABD PAIN--EPIGASTRIC and amp; RIGHT SIDE -- N/V/D, INTERMITTENT CRAMPING RADIATION DOSAGE (If Supplied By Facility): CTDIvol = ( 16.0 ) mGy, DLP = ( 830.68 ) mGycm TECHNIQUE: Transaxial images were obtained from the dome of the diaphragm to the symphysis pubis with oral contrast. Oral and amp; IV Gastrografin and amp; 100mL Isovue-300 was administered. Sagittal and coronal images were reconstructed. Individualized dose optimization techniques were used for this CT. COMPARISON: Comparison is made with prior study dated 11/06/2020. FINDINGS: The now is evidence of increased markings at the right lung base suggestive of a possible atelectasis. The visualized portions of the heart are within normal limits. Normal liver. Normal gallbladder and extrahepatic biliary system. Normal spleen. Normal pancreas. Normal bilateral adrenal glands. Normal right kidney. Normal left kidney. Normal visualized stomach. The small bowel appears to be unremarkable at this time. Normal colon. The appendix is visualized and appears normal. Normal abdominal aorta. Normal inferior vena cava. Normal retroperitoneum. The urinary bladder is distended. There are prostatic calcifications. Normal abdominal wall. Normal osseous structures. CT/Abdomen/Pelvis WITH Contrast IMPRESSION: Mild degree of right basilar atelectasis. The small bowel loops are unremarkable at this time. Electronically Signed: Conor Galvan, at 11:19 EST , Service support ,
--- NOTE | 2020-11-07 10:49 | PN.SURG_ITS ---
Patient Problems: Active and Suspected Problems (Last Reviewed 11/06/20 @ 15:55 by Svitlana BARROS, PAJanesC) Intractable nausea and vomiting (Acute) Acute enterocolitis (Acute) Subjective: Patient evaluated resting comfortably in bed. He notes having nausea. He denies vomiting. He notes abdominal pain was improved this morning however he is currently having a 4-5 out of 10 abdominal pain. - Physical Exam Vitals/I&O's: Vital Signs Temp Pulse Resp BP Pulse Ox 97.8 F 66 16 113/68 95 11/07/20 07:40 11/07/20 07:40 11/07/20 07:40 11/07/20 07:40 11/07/20 07:40 Oxygen Delivery Method Room Air Weight: 173 lb Body Mass Index (BMI) 27.9 Intake and Output for Last 24 Hours 11/05/20 11/06/20 11/07/20 23:59 23:59 23:59 Intake Total 3498.75 / 3498.75 1585 / 1585 Output Total 1925 / 1925 700 / 700 Balance 1573.75 / 1573.75 885 / 885 General: Alert, Oriented x3, Cooperative, - - ill appearing, pale Abdomen: Soft, Hypoactive Bowel Sounds, Tender - slightly epigastric/right upper quadrant Microbiology Past 72 Hours 11/06/20 10:30 Mucosa - Nose SARS-CoV-2 Antigen (Rapid) - Final Laboratory Results 11/06/20 10:30: Sodium 140, Potassium 4.4, Chloride 110 H, Carbon Dioxide 26.0, Anion Gap 4 L, BUN 14, Creatinine 1.10, Estim Creat Clear Calc 90.22, Est GFR (MDRD) Af Amer 102, Est GFR (MDRD) Non-Af 84, BUN/Creatinine Ratio 12.7, Glucose 96, Calcium 9.2, Total Bilirubin 1.20 H, AST 42 H, ALT 68 H, Alkaline Phosphatase 58, Total Protein 8.0, Albumin 4.1, Globulin 3.9, Albumin/Globulin Ratio 1.1 11/06/20 10:30: Lactic Acid 1.0 11/06/20 10:30: ESR 6 11/06/20 10:30: C-React Prot Ext Range < 2.90 11/07/20 06:34: WBC 6.6, RBC 4.32 L, Hgb 12.8 L, Hct 39.8 L, MCV 92.1, MCH 29.6, MCHC 32.2, RDW Std Deviation 41.4, RDW Coeff of Melinda 12.1, Plt Count 182, MPV 10.4, Immature Gran % (Auto) 0.300, Neut % (Auto) 47.6, Lymph % (Auto) 39.6, Deuel % (Auto) 10.1 H, Eos % (Auto) 1.8, Baso % (Auto) 0.6, Absolute Neuts (auto) 3.2, Absolute Lymphs (auto) 2.63, Nucleated RBC % 0 11/07/20 06:34: Sodium 142, Potassium 3.7, Chloride 110 H, Carbon Dioxide 29.0, Anion Gap 3 L, BUN 8, Creatinine 1.08, Estim Creat Clear Calc 91.89, Est GFR (MDRD) Af Amer 104, Est GFR (MDRD) Non-Af 86, BUN/Creatinine Ratio 7.4 L, Glucose 89, Calcium 7.9 L, Total Bilirubin 0.80, AST 26, ALT 48, Alkaline Phosphatase 42 L, Total Protein 6.0 L, Albumin 3.1 L, Globulin 2.9, Albumin/Globulin Ratio 1.1 Current Medications Acetaminophen (Acetaminophen 325 Mg Tablet) 650 mg PO Q6H PRN PRN PRN Reason: Pain Score 1-10/Temp > 100.7 F Last Admin: 11/07/20 05:39 Dose: 650 mg Documented by: Sodium Chloride () 1,000 mls @ 125 mls/hr IV .Q8H [facility] Last Infusion: 11/07/20 09:51 Dose: 125 mls/hr Documented by: Famotidine 20 mg/ Sodium (Chloride) 10 mls @ 300 mls/hr IV Q12 [facility] Last Infusion: 11/07/20 08:57 Dose: Infused Documented by: Metronidazole (Flagyl) 500 mg in 100 mls @ 100 mls/hr IV Q8 [facility] Last Infusion: 11/07/20 06:36 Dose: Infused Documented by: Ciprofloxacin (Cipro) 400 mg in 200 mls @ 200 mls/hr IV Q12 [facility] Last Infusion: 11/07/20 09:51 Dose: Infused Documented by: Iopamidol (Contrast Allergy Safety Check) 0 ml IV X1 [facility] Last Admin: 11/06/20 16:32 Dose: Not Given Documented by: Morphine Sulfate (Morphine 2 Mg/Ml Syringe) 1 - 2 mg IV Q3H PRN PRN PRN Reason: Pain Score 6-10 Last Admin: 11/07/20 07:41 Dose: 2 mg Documented by: Nutritional Formula (Lactose Free) (Ensure Clear 120 Ml Liquid) 120 ml PO 4X/DAY DENIA Last Admin: 11/07/20 08:51 Dose: Not Given Documented by: Ondansetron HCl (Ondansetron 4 Mg/2 Ml Vial) 4 mg IV Q8H PRN PRN PRN Reason: NAUSEA/VOMITING Last Admin: 11/07/20 02:30 Dose: 4 mg Documented by: Promethazine HCl (Promethazine 25 Mg/Ml Syringe) 12.5 mg IV Q6H PRN PRN PRN Reason: NAUSEA/VOMITING Last Admin: 11/07/20 08:49 Dose: 12.5 mg Documented by: Sodium Chloride (0.9% Saline Lock 10 Ml Syringe) 10 - 40 ml IV UD PRN PRN Reason: SALINE FLUSH Last Admin: 11/07/20 08:58 Dose: 10 ml Documented by: Medical Necessity - Tobacco Use Smoking Status: Never smoker Tobacco Use: Non-smoker Assessment/Plan All Active Problems (Last Reviewed 11/06/20 @ 15:55 by Svitlana BARROS PA-C) Intractable nausea and vomiting (Acute) Acute enterocolitis (Acute) I am following this patient in conjunction with Dr. Sinclair Impression: abdominal pain, nausea, vomiting unknown etiology CT scan of the ab/pel this morning with oral contrast. Reviewed with Dr. Sinclair. No acute pathology noted. Recommend upper and lower scope tomorrow Bowel prep today Continue clear liquids WBC returned to normal We will continue to monitor closely Inpatient E&M: 49883 Subs Hosp L1
--- NOTE | 2020-11-07 10:50 | CASEMGMT ---
RN STORM Face to Face with patient for initial transition planning/care coordination assessment. RN CM introduced self and role at [facility]. Patient lying in bed, alert and oriented. Patient willing to participate in assessment and is able to answer all questions appropriately. Care providers, pharmacy, and demographics verified. Patient wishes to discharge home, denies need for home health at this time. Patient states he has no further needs or concerns at this time. CM to follow for discharge planning needs that may arise. PCP: Kenia Specialists: none Preferred Pharmacy: [facility] Insurance: [employer] Prescription Benefit: yes Living Will/HPOA: none LNOK: Living Arrangements: Patient lives with in a single story home with 2 steps and railing to enter the home. Patient states he is independent at home. Transportation: self/ DME/HHC: Patient denies DME or previous HHC. Disposition Plan: Patient to discharge home with family support and follow-up plans in place. Rebecca DOWNING, RN, CM
[2020-11-07 14:30] VITALS: BP 126/80; PULSE 64; RESP 16; TEMP 36.3; O2SAT 95
[2020-11-07] MEDS: Bisacodyl 5 MG Tablet 20 MG PO (14:32)
[2020-11-07] MEDS: Polyethylene Glycol 3350 BOWEL PREP 1 BOTTLE PO (16:13)
[2020-11-07 19:52] VITALS: BP 116/82; PULSE 60; RESP 16; TEMP 36.6; O2SAT 96
[2020-11-08] VITALS (10 sets, daily range): BP systolic 100–144; BP diastolic 58–93; PULSE 52–88; RESP 16; TEMP 36.3–37.1; O2SAT 93–96
--- NOTE | 2020-11-08 | GASB_PTH ---
PATIENT: THAO DAVID III LOC: MS3 U#:[id number] AGE/SX: 30/M ROOM: NC316 RE11/06/[address]: Dr. Handy Nathan MD : 1990 BED: 1 DIS: 11/08/2020 SPEC #: [id number] RECD: 11/08/20 11:46 STATUS: MICHELLE REQ #: [id number] YOUSUF: 11/08/20 00:[address]: Dl Sinclair DEPT: SURGICAL PATHOLOGY RECD BY: Michael Armando ENTERED: 11/08/20 12:55 SP TYPE: Gastric Bx OTHR DR: MD Dr. Tonny Alonzo, DO Dr. Handy Nathan MD Tissues: A - Gastric mucous membrane B - Ileum, NOS C - COLON BIOPSY Procedures: Surgery Specimen Level IV Comments: @ Ordering doctor for SUIV edited from to @ by BERT at 11/08/20 1442 @ Submitting doctor edited from to @ by BERT at 11/08/20 1442 HEADER OPERATION: Colonoscopy, EGD ([facility]) PRE-OP DIAGNOSIS: Intractable nausea and vomiting; acute enterocolitis TISSUE SUBMITTED: A - Antrum biopsy for histo and H. pylori, B - terminal ileum biopsy, C - Random colonic biopsy MICROSCOPIC DIAGNOSIS A. Gastric antrum, biopsy: Minimal chronic inflammation. See comment. B. Terminal ileum, biopsy: No pathologic change. See comment. C. Colon, random biopsy: No pathologic change. AM:shanique 11/09/20 COMMENT A. The results of immunohistochemistry for Helicobacter pylori will be reported separately ([id number]). B. Benign lymphoid aggregates are present. MICROSCOPIC DESCRIPTION Slides are reviewed. GROSS DESCRIPTION A - Received in fixative is one container labeled with the patient's name and designated antrum biopsy. The specimen consists of one irregular fragment of light atkinson soft tissue that measures 0.5 x 0.5 x 0.1 cm. The specimen is totally submitted in one cassette. B - Received in fixative is one container labeled with the patient's name and designated terminal ileum biopsy. The specimen consists of two irregular fragments of light atkinson soft tissue that in aggregate measure 1 x 0.5 x 0.1 cm. The specimen is totally submitted in one cassette. C - Received in fixative is one container labeled with the patient's name and designated random colon biopsy. The specimen consists of multiple irregular fragments of light atkinson soft tissue that in aggregate measure 2.2 x 0.7 x 0.1 cm. The specimen is totally submitted in one cassette. / AM:shanique 11/08/20 TC:3 CPT: 79198 x3
[2020-11-08] MEDS: Morphine 2 MG/ML Syringe IV (03:14)
[2020-11-08] MEDS: Ondansetron 4 MG/2 ML Vial IV (03:14)
[2020-11-08] MEDS: 0.9% Normal Saline 1,000 ML 125 ML IV ×2 (05:39→12:30)
[2020-11-08] MEDS: metroNIDAZOLE 500 MG/100 ML BAG 100 MG IV ×2 (05:41→14:08)
[2020-11-08 07:08] LABS: Absolute Lymphocyte Count 2.21 X10^3/uL (0.83-4.51); Basophil# 0.05 X10^3/uL; Basophil% 0.8 % (0-1); Eosinophil# 0.09 X10^3/uL; Eosinophils% 1.5 % (0-5); Hematocrit 38.7 % (40-54); Hemoglobin 12.6 g/dL (13.0-16.5); Lymphocyte # 2.21 X10^3/ul (4.0); Mean Corp Hgb Conc 32.6 g/dL (32-36); Mean Corpuscular Hgb 29.7 pg (27.0-32.0); Mean Corpuscular Volume 91.3 fL (80-94); Mean Platelet Vol. 10.3 fl (6.2-12.0); Monocyte# 0.64 X10^3/uL; Monocyte% 10.7 % (0-10); NRBC Flagged by Analyzer 0 % (0-5); Neutrophil # 2.96 X10^3/uL (2.7-7.7); Neutrophil % 49.7 % (47-70); Platelet Count 180 K/mm3 (150-450); RBC Distribution Width SD 39.9 fl (35.1-43.9); Red Blood Count 4.24 M/mm3 (4.6-6.2)
[2020-11-08 07:37] LABS: Anion Gap 6 (5-15); BUN 6 mg/dL (7-18); BUN/Creat Ratio 5.7 RATIO (10-20); Calcium,Total 8.2 mg/dL (8.5-10.1); Chloride 111 mmol/L (98-107); Creatinine, Serum 1.05 mg/dL (0.70-1.30); EST Glomerular Filtration Rate 89 mL/min (>60); Est Glom Filt Rate - Afr Amer 108 mL/min (>60); Estimated Creatinine Clearance 94.52 ml/min; Glucose 84 mg/dL (74-106); Potassium 3.9 mmol/L (3.5-5.1); Sodium Level 144 mmol/L (136-145)
[2020-11-08] MEDS: Famotidine 200 MG/20 ML MDV 20 MG in 0.9% Normal Saline (Pres. free 8 ML 300 MG IV (09:07)
[2020-11-08] MEDS: 0.9% Saline Lock 10 ML Syringe IV ×2 (09:07→12:30)
[2020-11-08] MEDS: Ciprofloxacin 400 MG/200 ML BAG 200 MG IV (09:09)
--- NOTE | 2020-11-08 11:27 | NURSING ---
1050- pt transported off unit at this time via bed
--- NOTE | 2020-11-08 11:47 | OP.CCLET_ITS ---
11/08/2020 Tonny Aquino [address] [place] [address] Re : Upper GI endoscopy procedure for Paddy Evangelista Dear Dr. Aquino This procedure was performed on Sunday, November 08, 2020. My impressions and recommendations are as follows: Impressions : - Normal esophagus. No specimens collected. - Gastritis. Biopsied. - Normal examined duodenum. No specimens collected. Recommendations : - [facility] care. - Advance diet as tolerated. - Continue present medications. - I anticipate no further need for intervention. My findings are described in the full procedure note, which is enclosed. If I can be of further assistance, please feel free to contact me at Doctor phone number(s): , Fax: [phone], Work: . Sincerely, MD Dl Partida MD 11/08/2020 11:35:34 AM This report has been signed electronically.
--- NOTE | 2020-11-08 11:47 | OP.CCLET_ITS ---
11/08/2020 Tonny Aquino [address] [place] [address] Re : Colonoscopy procedure for Paddy Evangelista Dear Dr. Aquino This procedure was performed on Sunday, November 08, 2020. My impressions and recommendations are as follows: Impressions : - The examined portion of the ileum was normal. Biopsied. - The entire examined colon is normal. Biopsied. - Non-bleeding internal hemorrhoids. - The examination was otherwise normal. Recommendations : - Return patient to [facility] for [facility] care. - Advance diet as tolerated. - Continue present medications. - Await pathology results. - Repeat colonoscopy in 5-10 years for surveillance based on pathology results. - Telephone my office for pathology results in 1 week. - Patient may be discharged at any time today. My findings are described in the full procedure note, which is enclosed. If I can be of further assistance, please feel free to contact me at Doctor phone number(s): , Fax: [phone], Work: . Sincerely, MD Dl Partida MD 11/08/2020 11:39:51 AM This report has been signed electronically.
--- NOTE | 2020-11-08 11:47 | OP.COLON_ITS ---
Patient Name: Paddy Evangelista Procedure Date: 11/08/2020 11:18 AM Date of : 1990 Age: 30 Procedure: Colonoscopy Indications: Generalized abdominal pain, Diarrhea (presumed secondary to inflammatory bowel disease) Providers: Dl Sinclair MD Medicines: See the Anesthesia note for documentation of the administered medications Patient Profile: This is a 30 year old male. Refer to note in patient chart for documentation of history and physical. Last Colonoscopy: none. The patient's first colonoscopy is today. Complications: No immediate complications. Procedure: Pre-Anesthesia Assessment: - Prior to the procedure, a History and Physical was performed, and patient medications and allergies were reviewed. The patient's tolerance of previous anesthesia was also reviewed. The risks and benefits of the procedure and the sedation options and risks were discussed with the patient. All questions were answered, and informed consent was obtained. Prior Anticoagulants: The patient has taken no previous anticoagulant or antiplatelet agents. ASA Grade Assessment: II - A patient with mild systemic disease. After reviewing the risks and benefits, the patient was deemed in satisfactory condition to undergo the procedure. After I obtained informed consent, the scope was passed under direct vision. Throughout the procedure, the patient's blood pressure, pulse, and oxygen saturations were monitored continuously. The adult colonoscope was introduced through the anus and advanced to 3 cm into the ileum. The colonoscopy was performed without difficulty. The patient tolerated the procedure well. The quality of the bowel preparation was good. Scope In: 11:20:10 AM Scope Withdrawal Time 0 hours 7 minutes 2 seconds Scope Out: 11:31:11 AM Total Procedure Duration Time 0 hours 11 minutes 1 second Findings: The terminal ileum appeared normal. Biopsies were taken with a cold forceps for histology. The colon (entire examined portion) appeared normal. Biopsies for histology were taken with a cold forceps from the entire colon for evaluation of microscopic colitis. Non-bleeding internal hemorrhoids were found during retroflexion. The hemorrhoids were mild and small. The exam was otherwise without abnormality. There was nothing that looks suspicious from an endoscopy standpoint terminal ileum looked entirely normal but I did obtain a biopsy of this. Mucosal lining all look normal throughout the colon. Impression: - The examined portion of the ileum was normal. Biopsied. - The entire examined colon is normal. Biopsied. - Non-bleeding internal hemorrhoids. - The examination was otherwise normal. Recommendation: - Return patient to [facility] for [facility] care. - Advance diet as tolerated. - Continue present medications. - Await pathology results. - Repeat colonoscopy in 5-10 years for surveillance based on pathology results. - Telephone my office for pathology results in 1 week. - Patient may be discharged at any time today. Procedure Code(s): --- Professional --- 72976, Colonoscopy, flexible; with biopsy, single or multiple Diagnosis Code(s): --- Professional --- K64.8, Other hemorrhoids R10.84, Generalized abdominal pain R19.7, Diarrhea, unspecified CPT copyright 2017 [employer]. All rights reserved. The codes documented in this report are preliminary and upon digital sales director review may be revised to meet current compliance requirements. MD Dl Partida MD 11/08/2020 11:39:51 AM This report has been signed electronically. Number of Addenda: 0 Note Initiated On: 11/08/2020 11:18 AM
--- NOTE | 2020-11-08 11:47 | OP.EGD_ITS ---
Patient Name: Paddy Evangelista Procedure Date: 11/08/2020 11:08 AM Date of : 1990 Age: 30 Procedure: Upper GI endoscopy Indications: Generalized abdominal pain, Abnormal CT of the GI tract, Nausea with vomiting Providers: Dl Sinclair MD Medicines: See the Anesthesia note for documentation of the administered medications Patient Profile: This is a 30 year old male. Refer to note in patient chart for documentation of history and physical. Complications: No immediate complications. Procedure: Pre-Anesthesia Assessment: - Prior to the procedure, a History and Physical was performed, and patient medications and allergies were reviewed. The patient's tolerance of previous anesthesia was also reviewed. The risks and benefits of the procedure and the sedation options and risks were discussed with the patient. All questions were answered, and informed consent was obtained. Prior Anticoagulants: The patient has taken no previous anticoagulant or antiplatelet agents. ASA Grade Assessment: II - A patient with mild systemic disease. After reviewing the risks and benefits, the patient was deemed in satisfactory condition to undergo the procedure. After obtaining informed consent, the endoscope was passed under direct vision. Throughout the procedure, the patient's blood pressure, pulse, and oxygen saturations were monitored continuously. The Endoscope was introduced through the mouth, and advanced to the second part of duodenum. The upper GI endoscopy was accomplished without difficulty. The patient tolerated the procedure well. Scope In: 11:15:17 AM Scope Out: 11:17:54 AM Total Procedure Duration Time 0 hours 2 minutes 37 seconds Findings: The examined esophagus was normal. No biopsies or other specimens were collected for this exam. Localized mild inflammation characterized by erythema and granularity was found in the prepyloric region of the stomach. Biopsies were taken with a cold forceps for Helicobacter pylori testing. The examined duodenum was normal. No biopsies or other specimens were collected for this exam. Impression: - Normal esophagus. No specimens collected. - Gastritis. Biopsied. - Normal examined duodenum. No specimens collected. Recommendation: - Return patient to [facility] for [facility] care. - Advance diet as tolerated. - Continue present medications. - I anticipate no further need for intervention. Procedure Code(s): --- Professional --- 35481, Esophagogastroduodenoscopy, flexible, transoral; with biopsy, single or multiple Diagnosis Code(s): --- Professional --- K29.70, Gastritis, unspecified, without bleeding R10.84, Generalized abdominal pain R11.2, Nausea with vomiting, unspecified R93.3, Abnormal findings on diagnostic imaging of other parts of digestive tract CPT copyright 2017 [employer]. All rights reserved. The codes documented in this report are preliminary and upon stamp machine servicer review may be revised to meet current compliance requirements. MD Dl Partida MD 11/08/2020 11:35:34 AM This report has been signed electronically. Number of Addenda: 0 Note Initiated On: 11/08/2020 11:08 AM
--- NOTE | 2020-11-08 12:00 | IMM_PTH ---
PATIENT: THAO DAVID III LOC: 3 U#:[id number] AGE/SX: 30/M ROOM: ND316 RE11/06/[address]: Dr. Handy Nathan MD : 1990 BED: 1 DIS: 11/08/2020 SPEC #: [id number] RECD: 11/08/20 13:38 STATUS: SOUT REQ #: [id number] YOUSUF: 11/08/20 12:[address]: Dl Sinclair DEPT: IMMUNOHISTOCHEMISTRY RECD BY: Ruth Ann Benavides ENTERED: 11/08/20 13:39 SP TYPE: IMMUNO OTHR DR: MD Dr. Tonny Alonzo DO Dr. Prakash Chand, MD Tissues: A - Stomach, NOS Procedures: H Pylori (initial) Comments: @ Ordering doctor for H.PYLORI edited from to @ by BERT at 11/08/20 1443 @ Submitting doctor edited from to DR.DPEABO Panda by BERT at 11/08/20 1443 PHYSICIAN & [place] [phone] SPECIMEN INFORMATION: Tissue Source: A - Antrum biopsy Clinical Info: Intractable nausea and vomiting; acute enterocolitis Specimen Number: [id number] CPT code: 59490 METHODOLOGY: Deparaffinized sections of prefer/formalin-fixed tissue or PAP/DQ stained slides are incubated with monoclonal/polyclonal antibodies/oligonucleotide probes. Localization is made via biotin free immunoperoxidase method. Appropriate controls are performed and reacted as expected. Results on target cell population are indicated in the following table: RESULTS: ANTIBODY / CLONE RESULT Block A H Pylori (polyclonal) negative These tests were developed and their performance characteristics determined by [facility]. They may not have been cleared or approved by the U.S. Food and Drug Administration. The FDA has determined that such clearance or approval is not necessary. INTERPRETATION: A. Antrum, biopsy: Negative for Helicobacter pylori organisms. SJ:shanique 11/09/20
--- NOTE | 2020-11-08 15:40 | DCINST_ITS ---
- Discharge Diagnoses Current Active Problems: Current Active and Chronic Problems (Last Reviewed 11/06/20 @ 15:55 by Svitlana BARROS PA-C) Intractable nausea and vomiting (Acute) Acute enterocolitis (Acute) You will use the following diet at home:: Regular Discharge Activity: Return to Normal Activity, May Not Drive - Today as patient had procedure today Call your doctor if you observe: Fever of 101 or Higher, Coldness, Increased Pain, Numbness or Tingling, Change in Color, Inability to have a bowel movement, Shortness of breath, Dizziness, Fainting spells, Swelling in the ankles, Chest pain, Prolonged hiccoughing, Increased palpitations (irregular heartbeat), Uncontrolled pain Allergies/Adverse Reactions: Allergies No Known Allergies Allergy (Verified 11/06/20 00:27) Medications to take at Discharge Ondansetron [Zofran Odt] 4 mg PO Q8H PRN PRN #10 tab 11/06/20 Primary Care Physician: Tonny Aquino DO [Primary Care Provider] - Please follow up with your Primary Care Physician in: In 2 weeks Test Results: Test results from this visit will be discussed in further detail at your follow- up appointment, if applicable. Please Follow Up With: Dl Sinclair MD When: In 2 weeks to follow-up EGD and colonoscopy biopsy Please Follow Up With: Herbert Tejada MD When: In 4 weeks for possible IBS and chronic diarrhea
--- NOTE | 2020-11-08 15:45 | DS.PCM_ITS ---
Discharge Date and Diagnosis - Problem List Patient Problems: Active and Suspected Problems (Last Reviewed 11/06/20 @ 15:55 by Svitlana BARROS PA-C) Intractable nausea and vomiting (Acute) Acute enterocolitis (Acute) Date of Admission: 11/06/20 Date of Discharge: 11/08/20 - Primary Discharge Diagnosis Acute Problems: Active Problems (Last Reviewed 11/06/20 @ 15:55 by Svitlana BARROS PA-C) Intractable nausea and vomiting (Acute) Acute enterocolitis (Acute) Hospital Course and Treatment Summary of Care Provided: T This is a 30 years old male patient presented to the emergency room because of persistent abdominal pain with nausea and vomiting on day of admission, found to have acute enteritis and enterocolitis on CT scan abdomen as well as some degree of partial small bowel obstruction related to area of stricture and he is being admitted for evaluation and treatment. #1 acute enteritis/enterocolitis: Patient did not had bowel movement for stool specimen for last [address] abdomen and pelvis with oral and IV contrast shows small bowels are unremarkable. No family history of Crohn's disease, ulcerative colitis but father had colon cancer and 11 years ago. Repeat liver chemistry shows normalization of transaminases. Patient had EGD and colonoscopy on 11/08/2020: Normal esophagus and duodenum. Mild gastritis which was biopsied. No specific lesion found on colonoscopy except nonbleeding internal hemorrhoids. Biopsies were taken. Follow-up with Dr. Sinclair 1 week for biopsy. #2 False positive partial small bowel obstruction due to stricture. Repeat CT abdomen and pelvis reported a small bowel looks unremarkable. #3 intractable nausea and vomiting: Resolved. Continue IV fluid, IV antiemetics, IV Pepcid twice daily. On clear liquid diets #4 DVT prophylaxis: Low risk patient, no prophylaxis indicated. Clinical Impression(s) from Imaging Studies Gallbladder Ultrasound 11/06/20 11:08 IMPRESSION: No evidence of gallstones. Findings suggestive of adenomyomatosis of the gallbladder wall. Abdomen/Pelvis CT 11/07/20 10:00 IMPRESSION: Mild degree of right basilar atelectasis. The small bowel loops are unremarkable at this time. Patient Problems: Active and Suspected Problems (Last Reviewed 11/06/20 @ 15:55 by Svitlana BARROS PA-C) Intractable nausea and vomiting (Acute) Acute enterocolitis (Acute) Objective: Seen and examined. Patient has mild loose bowel movement 2 diarrhea secondary to colon prep solution. Patient has EDG and colonoscopy in the morning. Physical exam General: Alert, Oriented x3, Cooperative HEENT: Atraumatic, PERRLA, EOMI, Normocephalic Oral: No Gingival or Mucosal Lesions/ Ulcerations Neck: Supple, No JVD, Negative Carotid Bruits Lungs: Air entry equal in bilateral lung bases. No crepitation/rhonchi Cardiovascular: Regular rate, Regular Rhythm, Normal S1, Normal S2, No murmurs Abdomen: Bowel Sounds Present, Soft, Non Tender, Non-Distended. No palpable mass : No renal angle tenderness. No suprapubic tenderness. Extremities: No edema, Capillary Refill Less than 3 Seconds Skin: No rashes, No breakdown Musculoskeletal: No Tenderness to Palpation of Joints or Extremities Neurological: Cranial nerves II-XII grossly intact, Deep Tendon Reflexes 2+/4 and Symmetrical, Neuro grossly intact Psych/Mental Status: Normal Affect, Appropriate. - Physical Exam Vitals/I&O's: Vital Signs Temp Pulse Resp BP Pulse Ox 97.5 F L 52 L 16 115/86 H 95 11/08/20 12:30 11/08/20 12:30 11/08/20 12:30 11/08/20 12:30 11/08/20 12:30 Oxygen Delivery Method Room Air Weight: 173 lb Body Mass Index (BMI) 27.9 Intake and Output for Last 24 Hours 11/06/20 11/07/20 11/08/20 23:59 23:59 23:59 Intake Total 3498.75 / 3498.75 3943.33 / 3943.33 1955.82 / 1955.82 Output Total 1925 / 1925 2200 / 2200 750 / 750 Balance 1573.75 / 1573.75 1743.33 / 1743.33 1205.82 / 1205.82 Microbiology Past 72 Hours 11/07/20 16:20 Stool Enteric Bacteriology - Final 11/07/20 16:20 Stool C. difficile DNA Amplification - Final 11/06/20 10:30 Mucosa - Nose SARS-CoV-2 Antigen (Rapid) - Final Laboratory Results 11/08/20 07:00: WBC 6.0, RBC 4.24 L, Hgb 12.6 L, Hct 38.7 L, MCV 91.3, MCH 29.7, MCHC 32.6, RDW Std Deviation 39.9, RDW Coeff of Melinda 12.0, Plt Count 180, MPV 10.3, Immature Gran % (Auto) 0.300, Neut % (Auto) 49.7, Lymph % (Auto) 37.0, [place] % (Auto) 10.7 H, Eos % (Auto) 1.5, Baso % (Auto) 0.8, Absolute Neuts (auto) 3.0, Absolute Lymphs (auto) 2.21, Nucleated RBC % 0 11/08/20 07:00: Sodium 144, Potassium 3.9, Chloride 111 H, Carbon Dioxide 27.0, Anion Gap 6, BUN 6 L, Creatinine 1.05, Estim Creat Clear Calc 94.52, Est GFR (MDRD) Af Amer 108, Est GFR (MDRD) Non-Af 89, BUN/Creatinine Ratio 5.7 L, Glucose 84, Calcium 8.2 L, Magnesium 2.0 Current Medications Acetaminophen (Acetaminophen 325 Mg Tablet) 650 mg PO Q6H PRN PRN PRN Reason: Pain Score 1-10/Temp > 100.7 F Last Admin: 11/07/20 12:44 Dose: 650 mg Documented by: Sodium Chloride () 1,000 mls @ 125 mls/hr IV .Q8H [facility] Last Infusion: 11/08/20 15:08 Dose: 125 mls/hr Documented by: Famotidine 20 mg/ Sodium (Chloride) 10 mls @ 300 mls/hr IV Q12 [facility] Last Infusion: 11/08/20 09:09 Dose: Infused Documented by: Metronidazole (Flagyl) 500 mg in 100 mls @ 100 mls/hr IV Q8 [facility] Last Infusion: 11/08/20 15:08 Dose: Infused Documented by: Ciprofloxacin (Cipro) 400 mg in 200 mls @ 200 mls/hr IV Q12 [facility] Last Infusion: 11/08/20 10:09 Dose: Infused Documented by: Iopamidol (Contrast Allergy Safety Check) 0 ml IV X1 [facility] Last Admin: 11/08/20 14:52 Dose: Not Given Documented by: Morphine Sulfate (Morphine 2 Mg/Ml Syringe) 1 - 2 mg IV Q3H PRN PRN PRN Reason: Pain Score 6-10 Last Admin: 11/08/20 03:14 Dose: 2 mg Documented by: Nutritional Formula (Lactose Free) (Ensure Clear 120 Ml Liquid) 120 ml PO 4X/DAY DENIA Last Admin: 11/08/20 13:17 Dose: Not Given Documented by: Ondansetron HCl (Ondansetron 4 Mg/2 Ml Vial) 4 mg IV Q8H PRN PRN PRN Reason: NAUSEA/VOMITING Last Admin: 11/08/20 03:14 Dose: 4 mg Documented by: Promethazine HCl (Promethazine 25 Mg/Ml Syringe) 12.5 mg IV Q6H PRN PRN PRN Reason: NAUSEA/VOMITING Last Admin: 11/07/20 19:40 Dose: 12.5 mg Documented by: Sodium Chloride (0.9% Saline Lock 10 Ml Syringe) 10 - 40 ml IV UD PRN PRN Reason: SALINE FLUSH Last Admin: 11/08/20 12:30 Dose: 10 ml Documented by: Discharge Activity: Return to Normal Activity, May Not Drive - Today as patient had procedure today Call your doctor if you observe: Fever of 101 or Higher, Coldness, Increased Pain, Numbness or Tingling, Change in Color, Inability to have a bowel movement, Shortness of breath, Dizziness, Fainting spells, Swelling in the ankles, Chest pain, Prolonged hiccoughing, Increased palpitations (irregular heartbeat), Uncontrolled pain Home Medications: Medications to take at Discharge Ondansetron [Zofran Odt] 4 mg PO Q8H PRN PRN #10 tab 11/06/20 Primary Care Physician: Tonny Aquino DO [Primary Care Provider] - Please follow up with your Primary Care Physician in: In 2 weeks Please Follow Up With: Dl Sinclair MD When: In 2 weeks to follow-up EGD and colonoscopy biopsy Please Follow Up With: Herbert Tejada MD When: In 4 weeks for possible IBS and chronic diarrhea Medical Necessity - Tobacco Use Smoking Status: Never smoker Tobacco Use: Non-smoker Meaningful Use Info Meaningful Use Diagnoses (Choose all that apply): None applicable Inpatient E&M: 88712 [facility]
== END 2020-11-08 17:00 | disposition home or self-care (01) | DRG 392 ==
LOC: ED 10:37 → MS3 13:18
PROVIDERS: Surgery; Admitting Provider Hospitalist; Emergency Provider Emergency Medicine; PCP Family Medicine; Visit Provider Internal Medicine
PROC: 0DJD8ZZ Inspection of Lower Intestinal Tract, Via Natural or Artificial Opening Endoscopic (ICD-10-PCS; CPT 45378; principal; 2020-11-08 11:55)
DX: A08.4 Viral intestinal infection, unspecified (principal); K56.600 Partial intestinal obstruction, unspecified as to cause; K29.70 Gastritis, unspecified, without bleeding; K64.8 Other hemorrhoids; Z80.0 Family history of malignant neoplasm of digestive organs
CPT/HCPCS: 36415; 74177; 76705; 80048; 80053; 83605; 83735; 85025; 85652; 86140; 87426; 87493; 87506; 88305; 88342; 97802; 99284; J7030; Q9967; A4216; J0744; J1610; J2405; J3490

== ENCOUNTER 2021-09-21 20:12 | Emergency (ER) | payer BC, SELFPAY ==
[2021-09-21 20:12] VITALS: BP 137/106; PULSE 82; RESP 17; TEMP 35.9; O2SAT 100; BMI 34.3
[2021-09-21] MEDS: Diphth,Pertuss(Acell),Tet Vac 0.5 ML Vial IM (21:07)
[2021-09-21] MEDS: Cephalexin 250 MG Capsule 500 MG PO (21:07)
[2021-09-21] MEDS: Lidocaine 2% (20 ml mdv) 20 ML Vial INFILT (22:10)
--- NOTE | 2021-09-21 22:33 | EX.ED.DYSGE1 ---
HPI History of Present Illness Chief Complaint: Laceration Narrative Narrative: Patient is a 31-year-old male who is right-hand dominant. He states he was hunting today and he was dressing the deer that he shot. He reports he went to close a knife and it cut his right hand. He reports pain and bleeding from the site but denies any numbness tingling or weakness. He states he is unsure of his tetanus status. He reports he felt he may need sutures and secondary to this comes in for evaluation [facility] Medical History Diarrhea Fatigue Hay fever Severe headache Home Medications cephalexin 500 mg PO BID 7 Days #14 cap 09/21/21 [Rx Last Taken Unknown] Allergy/AdvReac Type Severity Reaction Status Date / Time No Known Allergies Allergy Verified 09/21/21 20:12 Social History (Updated 12/05/20 @ 08:[address] Dl Sinclair MD) Smoking Status: Never smoker alcohol intake: current ROS ROS ED Constitutional Constitutional ED: Denies chills or fever(s) ENT ENT ED: Denies sore throat Cardiovascular Cardiovascular: Denies chest pain Respiratory/Chest Respiratory/Chest: Denies cough or dyspnea Gastrointestinal Gastrointestinal: Denies abdominal pain, diarrhea, nausea or vomiting Genitourinary Genitourinary ED: Denies dysuria Musculoskeletal Musculoskeletal: Reports other Details: Positive right hand pain Integumentary Reports other Details: Positive right hand laceration Neurologic Neurologic: Denies headache(s) Hematologic/Lymphatic Hematologic/Lymphatic: Denies easy bleeding or easy bruising EXAM Physical Exam Const Vital Signs: 09/21/21 20:12 Temperature 96.6 F L Temperature Source Temporal Pulse Rate 82 Respiratory Rate 17 Blood Pressure 137/106 H Blood Pressure Mean 116 Pulse Ox 100 Oxygen Delivery Method Room Air Positive well nourished and well developed General Appearance ED: well developed Eyes PERRL and EOMs intact bilaterally Neck supple Resp normal respiratory effort and clear to auscultation bilaterally Cardio regular rate and regular rhythm Extremity Extremity Narrative: Right upper extremity is neurovascular intact; AIN/PIN are intact and normal. Patient has a linear 2 cm laceration to the dorsal aspect of his right hand over top the midportion of the fifth metacarpal. The wound is subcutaneous layer deep with no foreign body and minimal ooze of blood. No ligamentous or tendon laceration noted. No bony deformity noted. Neuro oriented x3 and CN's II-XII intact bilaterally Sensorium / Orientation: alert Motor Exam: strength 5/5 throughout Psych mental status grossly normal Skin no rashes or lesions noted Skin Narrative: Laceration to the right hand as documented above MDM MDM MDM Narrative Medical decision making narrative: Patient presented to the ER with a simple laceration to his right hand with no signs of foreign body bony deformity or ligamentous or tendon injury so I felt no need for imaging or laboratory studies. His tetanus status was updated then the wound was closed as documented below. Patient was placed on Keflex for infection prophylaxis based on the contaminated nature of the wound. However now that the wound is closed he is safe for discharge Patient had the right hand cleaned with chlorhexidine. It was anesthetized with 6 mL of 2% lidocaine without epinephrine in local fashion. The wound was copiously irrigated with normal saline. Then eight 4-0 Ethilon sutures were placed in simple erupted fashion to bring the wound together good approximation. Patient tolerated procedure well without complication. Discharge Plan Triage Chief Complaint: Laceration ED Provider: Espinoza Khan Dx/Rx/DC Orders Clinical Impression: Laceration of hand, right Instructions: ED Laceration, Hand: All Closures Prescriptions: New cephalexin 500 mg capsule 500 mg PO BID 7 Days Qty: 14 RF: 0 Primary Care Provider: Tonny Aquino Referrals: Tonny Aquino DO [Primary Care Provider] - Activity Restrictions/Additional Instructions: Please return to the ER or see your family doctor in 7 to 10 days for suture removal Disposition Disposition: Home, Self Care Discharge Date/Time: 09/21/21 22:42
== END 2021-09-21 22:42 | disposition home or self-care (01) ==
PROVIDERS: Emergency Provider Emergency Medicine; PCP Family Medicine
DX: S61.411A Laceration without foreign body of right hand, initial encounter (principal); W26.0XXA Contact with knife, initial encounter; Z23 Encounter for immunization
CPT/HCPCS: 12001; 90471; 90715; 99283

== ENCOUNTER → 2021-09-27 15:56 | Outpatient (CLI) | payer BC, SELFPAY | PROVIDERS: PCP Family Medicine; Visit Provider Physician Assistant | DX: Z11.52 Encounter for screening for COVID-19 (principal) | CPT/HCPCS: 87635; U0005; U0003 ==

== ENCOUNTER 2021-12-06 09:46 | Outpatient (CLI) | payer BC, SELFPAY | END 2021-12-06 23:59 | disposition short-term general hospital (02) | LOC: LABSPEC 09:47 | PROVIDERS: PCP Family Medicine; Referring Provider Physician Assistant; Visit Provider Physician Assistant | DX: Z20.822 Contact with and (suspected) exposure to COVID-19 (principal) | CPT/HCPCS: 87635; U0003; U0005 ==

== ENCOUNTER → 2024-01-21 | Outpatient (CLI) | payer BC, SELFPAY | END | disposition home or self-care (01) | PROVIDERS: PCP Family Medicine; Visit Provider Family Medicine | DX: R53.83 Other fatigue (principal) | CPT/HCPCS: 36415; 84402; 84403 ==

== ENCOUNTER → 2024-02-12 | Outpatient (CLI) | payer BC, SELFPAY ==
[2024-02-12 09:00] LABS: Absolute Lymphocyte Count 1.89 X10^3/uL (0.83-4.51); Absolute Neutrophil Count 2.8 X10^3/uL (2.0-7.7); Basophil# 0.06 X10^3/uL; Basophil% 1.1 % (0-1); Eosinophil# 0.06 X10^3/uL; Eosinophils% 1.1 % (0-5); Hematocrit 45.9 % (40-54); Hemoglobin 15.1 g/dL (13.0-16.5); Lymphocyte # 1.89 X10^3/ul (0.83-4.51); Lymphocyte % 34.6 % (19-41); Mean Corp Hgb Conc 32.9 g/dL (32-36); Mean Corpuscular Hgb 29.3 pg (27.0-32.0); Mean Corpuscular Volume 89.1 fL (80-94); Mean Platelet Vol. 9.9 fl (6.2-12.0); Monocyte# 0.61 X10^3/uL; Monocyte% 11.2 % (0-10); NRBC Flagged by Analyzer 0 % (0-5); Neutrophil # 2.83 X10^3/uL (2.7-7.7); Neutrophil % 51.8 % (47-70); Platelet Count 229 K/mm3 (150-450); RBC Distribution Width CV 12.3 % (11.6-14.6); RBC Distribution Width SD 40.8 fl (35.1-43.9); Red Blood Count 5.15 M/mm3 (4.6-6.2); White Blood Count 5.5 K/mm3 (4.4-11.0)
[2024-02-12 09:58] LABS: Ferritin 275 ng/mL (26-388)
[2024-02-14 14:13] LABS: Testosterone Free 7.5 pg/mL (8.7-25.1)
== END | disposition home or self-care (01) ==
LOC: PAVLAB 08:40
PROVIDERS: PCP Family Medicine; Referring Provider Family Medicine; Visit Provider Family Medicine
DX: R53.83 Other fatigue (principal); R79.89 Other specified abnormal findings of blood chemistry
CPT/HCPCS: 36415; 82728; 84402; 84403; 85025

== ENCOUNTER → 2024-08-03 | Outpatient (CLI) | payer BC, SELFPAY ==
[2024-08-03 15:45] LABS: Absolute Lymphocyte Count 2.25 X10^3/uL (0.83-4.51); Absolute Neutrophil Count 5.8 X10^3/uL (2.0-7.7); Basophil# 0.05 X10^3/uL; Basophil% 0.6 % (0-1); Eosinophil# 0.01 X10^3/uL; Eosinophils% 0.1 % (0-5); Hematocrit 49.4 % (40-54); Hemoglobin 15.7 g/dL (13.0-16.5); Lymphocyte # 2.25 X10^3/ul (0.83-4.51); Lymphocyte % 25.9 % (19-41); Mean Corp Hgb Conc 31.8 g/dL (32-36); Mean Corpuscular Hgb 29.6 pg (27.0-32.0); Mean Platelet Vol. 10.5 fl (6.2-12.0); Monocyte# 0.55 X10^3/uL; Monocyte% 6.3 % (0-10); NRBC Flagged by Analyzer 0 % (0-5); Neutrophil # 5.82 X10^3/uL (2.7-7.7); Neutrophil % 66.9 % (47-70); Platelet Count 234 K/mm3 (150-450); RBC Distribution Width CV 12.6 % (11.6-14.6); Red Blood Count 5.31 M/mm3 (4.6-6.2); White Blood Count 8.7 K/mm3 (4.4-11.0)
== END | disposition home or self-care (01) ==
LOC: BFHLAB 13:05
PROVIDERS: PCP Family Medicine; Referring Provider Family Medicine; Visit Provider Family Medicine
DX: E29.1 Testicular hypofunction (principal); Z51.81 Encounter for therapeutic drug level monitoring
CPT/HCPCS: 36415; 84153; 84403; 85025; G0103

== ENCOUNTER → 2025-08-15 | Outpatient (CLI) | payer BC, SELFPAY ==
[2025-08-15 09:36] LABS: Hematocrit 50.1 % (40-54); Hemoglobin 16.9 g/dL (13.0-16.5); Immature Granulocytes Count 0.040 X10^3/uL (0.0-0.0); Mean Corp Hgb Conc 33.7 g/dL (32-36); Mean Corpuscular Volume 91.1 fL (80-94); Mean Platelet Vol. 9.7 fl (6.2-12.0); NRBC Flagged by Analyzer 0 % (0-5); Platelet Count 231 K/mm3 (150-450); RBC Distribution Width CV 12.3 % (11.6-14.6); RBC Distribution Width SD 40.7 fl (35.1-43.9); Red Blood Count 5.50 M/mm3 (4.6-6.2); White Blood Count 7.4 K/mm3 (4.4-11.0)
--- OUTSIDE RECORDS SUMMARY | 2025-08-15 10:14 | XMS RPT_ITS | CCD ---
Author Organization [facility] Inform ion Partnership [facility] Care Team Providers Care Ware Cleaner Name Role Phone Tonny Aquino Attending Unavailable Tonny Aquino Referring Unavailable Tonny Aquino Primary Care Unavailable Tonny Aquino Attending Unavailable Tonny Aquino Primary Care Unavailable Medications Completed/Discontinued Medications Medication Drug Class(es) Dates Sig (Normalized) Sig (Original) cephalexin 500 mg oral capsule (2 sources) Cephalosporin Antibacterial Start: 09-21-2021 End: 01-04-2022 take 500 mg by mouth twice daily Cephalexin Discontinued 500 MG PO TWICE A DAY 14 September 21, 2021 12:00am January 04, 2022 4:22pm ondansetron 4 mg disintegrating oral tablet (4 sources) Serotonin-3 Receptor Antagonist Start: 11-06-2020 End: 11-15-2020 take 4 mg by mouth every eight hours as needed Ondansetron Discontinued 4 MG PO EVERY 8 HOURS NEEDED November 06, 2020 1:00am November 15, 2020 9:15am Start: 07-18-2014 End: 12-23-2019 take 4 mg by mouth every eight hours as needed Ondansetron Discontinued 4 MG PO EVERY 8 HOURS NEEDED July 18, 2014 12:00am December 23, 2019 1:55pm potassium chloride 20 meq extended release oral tablet (2 sources) Start: 07-18-2014 End: 12-23-2019 take 20 mEq by mouth once daily Potassium Chloride Discontinued 20 MEQ PO DAILY July 18, 2014 12:00am December 23, 2019 1:55pm Problems Active Problems Problem Classification Problem Date Documented Da te Episodic/Chronic Abdominal pain (2 sources) Abdominal pain; Translations: [Unspecified abdominal pain] 01-24-2020 Episodic Acute bronchitis (2 sources) Acute bronchitis; Translations: [Acute bronchitis, unspecified] 01-04-2022 Episodic Nausea and vomiting (2 sources) Intractable nausea and vomiting; Translations: [Nausea with vomiting, unspecified] 11-06-2020 Episodic Open wounds of extremities (2 sources) Laceration of right hand; Translations: [Laceration without foreign body of right hand, initial encounter] 09-29-2021 Episodic Other endocrine disorders (1 source) Testicular hypofunction; Translations: [Testicular hypofunction] Onset: 08-23-2024 Chronic Other lower respiratory disease (2 sources) Cough; Translations: [Cough] 01-04-2022 Episodic Past or Other Problems Problem Classification Problem Date Documented Da te Episodic/Chronic Unclassified (2 sources) Acute enterocolitis 08-30-2022 Results Test Name Value Interpretation Reference Range Facility CBC W/Diff, Automatedon 07-25 Absolute Lymph 2.25 X10 3/uL Normal 0.83-4.51 [facility] Comment on above: Performed By: #### L 509.3000, L501.9910, L100.0100 #### [facility] [address] [place], [address] Absolute Neut 5.8 X10 3/uL Normal 2.0-7.7 [facility] Comment on above: Performed By: #### L 509.3000, L501.9910, L100.0100 #### [facility] [address] [place] [place], [address] Basophils/100 WBC (Bld) 0.6 % Normal 0-1 [facility] Comment on above: Performed By: #### L 509.3000, L501.9910, L100.0100 #### [facility] [address] [place], [address] Eosinophils/100 WBC (Bld) 0.1 % Normal 0-5 [facility] Comment on above: Performed By: #### L 509.3000, L501.9910, L100.0100 #### [facility] [address] [facility], [address] Erythrocyte distribution width (RBC) [Ratio] 12.6 % Normal 11.6-14.6 [facility] Comment on above: Performed By: #### L 509.3000, L501.9910, L100.0100 #### [facility] [address] [place], [address] Hematocrit (Bld) [Volume fraction] 49.4 % Normal 40-54 [facility] Comment on above: Performed By: #### L 509.3000, L501.9910, L100.0100 #### [facility] [address] [place], [address] Hemoglobin (Bld) [Mass/Vol] 15.7 g/dL Normal 13.0-16.5 [facility] Comment on above: Performed By: #### L 509.3000, L501.9910, L100.0100 #### [facility] [address] [place], [address] IG% 0.200 Normal 0.0-0.9 [facility] Comment on above: Result Comment: IG% - Immature Granulocytes (promyelocytes, myelocytes and metamyelocytes) > 1% indicates that a LEFT SHIFT is Present. Performed By: #### L 509.3000, L501.9910, L100.0100 #### [facility] [address] [place], [address] Lymphocytes/100 WBC (Bld) 25.9 % Normal 19-41 [facility] Comment on above: Performed By: #### L 509.3000, L501.9910, L100.0100 #### [facility] [address] [place], [address] MCH (RBC) [Entitic mass] 29.6 pg Normal 27.0-32.0 [facility] Comment on above: Performed By: #### L 509.3000, L501.9910, L100.0100 #### [facility] [address] [place], [address] MCHC (RBC) [Mass/Vol] 31.8 g/dL Low 32-36 [facility] Comment on above: Performed By: #### L 509.3000, L501.9910, L100.0100 #### [facility] [address] [place], [address] MCV (RBC) [Entitic vol] 93.0 fL Normal 80-94 [facility] Comment on above: Performed By: #### L 509.3000, L501.9910, L100.0100 #### [facility] [address] [place], [address] Monocytes/100 WBC (Bld) 6.3 % Normal 0-10 [facility] Comment on above: Performed By: #### L 509.3000, L501.9910, L100.0100 #### [facility] [address] [place], [address] Neutrophils/100 WBC (Bld) 66.9 % Normal 47-70 [facility] Comment on above: Performed By: #### L 509.3000, L501.9910, L100.0100 #### [facility] [address] [place], [address] Nucleated RBC (Bld) [#/Vol] 0 10*3/uL Normal 0-5 [facility] Comment on above: Performed By: #### L 509.3000, L501.9910, L100.0100 #### [facility] [address] [place], [address] Platelet mean volume (Bld) [Entitic vol] 10.5 fL Normal 6.2-12.0 [facility] Comment on above: Performed By: #### L 509.3000, L501.9910, L100.0100 #### [facility] [address] [place], [address] Platelets (Bld) [#/Vol] 234 10*3/uL Normal 150-450 [facility] Comment on above: Performed By: #### L 509.3000, L501.9910, L100.0100 #### [facility] [address] [place], [address] RBC (Bld) [#/Vol] 5.31 10*6/uL Normal 4.6-6.2 [facility] Comment on above: Performed By: #### L 509.3000, L501.9910, L100.0100 #### [facility] [address] [place], [address] RDW SD 43.0 fl Normal 35.1-43.9 [facility] Comment on above: Performed By: #### L 509.3000, L501.9910, L100.0100 #### [facility] [address] [place], [address] WBC (Bld) [#/Vol] 8.7 10*3/uL Normal 4.4-11.[address] [facility] Comment on above: Performed By: #### L 509.3000, L501.9910, L100.0100 #### [facility] [address] [place], [address] PSA,Total - Annual Screenon 08-03-2024 PSA,TOT SCREEN 0.20 ng/mL Normal 0.00-4.00 [facility] Comment on above: Result Comment: This test was performed using the TPSA assay method for the [employer] chemistry system. Values obtained with different assay methods cannot be used interchangably. When changing PSA assays in the course of monitoring a patient, additional sequential testing should be carried out to confirm baseline values. Performed By: #### L 509.3000, L501.9910, L100.0100 #### [facility] [address] [place], [address] Testosterone, Serum Totalon 08-03-2024 Testosterone [Mass/Vol] 534.16 ng/dL Normal [facility] Comment on above: Result Comment: CENT RAL 90% REFERENCE RANGES MALE AGE <50 197.44 - 669.58 ng/dL MALE AGE > or = 50 187.72 - 684.19 ng/dL FEMALE AGE <50 8.38 - 35.01 ng/dL FEMALE AGE > or = 50 <7.00 - 35.92 ng/dL Effective as of 06/19/21 Performed By: #### L 509.3000, L501.9910, L100.0100 #### [facility] [address] [place], [address] Absolute lymphocyte countOrd ered By: Tonny HightowerKenia on 02-12-2024 Lymphocytes Auto (Unsp spec) [#/Vol] 1.89 10*3/uL 0.83-4.51 [facility] Automated lymphocyte count a s percentage of total leukocytesOrdered By: Tonny Aquino on 02-12-2024 Lymphocytes/100 WBC Auto (Unsp spec) 34.6 % 19-41 [facility] Basophil percentageOrdered B y: Tonny HightowerKenia on 02-12-2024 Basophils/100 WBC (Bld) 1.1 % 0-1 [facility] Eosinophils/100 WBC (Bld) 1.1 % 0-5 [facility] Hemoglobin (Bld) [Mass/Vol] 15.1 g/dL 13.0-16.5 [facility] Monocytes/100 WBC (Bld) 11.2 % 0-10 [facility] Neutrophils (Bld) [#/Vol] 2.8 10*3/uL 2.0-7.7 [facility] Neutrophils/100 WBC (Bld) 51.8 % 47-70 [facility] Testosterone [Mass/Vol] 279.72 ng/dL [facility] Comment on above: CENTRAL 90% REFERENC E RANGES MALE AGE <50 197.44 - 669.58 ng/dL MALE AGE > or = 50 187.72 - 684.19 ng/dL FEMALE AGE <50 8.38 - 35.01 ng/dL FEMALE AGE > or = 50 <7.00 - 35.92 ng/dL Effective as of 06/19/21 WBC (Bld) [#/Vol] 5.5 10*3/uL 4.4-11.[address] [facility] Determination of erythrocyte mean corpuscular volume (MCV)Ordered By: Tonny Aquino on 02-12-2024 MCV (RBC) [Entitic vol] 89.1 fL 80-94 [facility] Erythrocyte distribution wid th ratioOrdered By: Tonny Aquino on 02-12-2024 Erythrocyte distribution width (RBC) [Ratio] 12.3 % 11.6-14.6 [facility] Erythrocyte distribution wid th standard deviationOrdered By: Tonny Aquino on 02-12-2024 Erythrocyte distribution width (RBC) [Entitic vol] 40.8 fL 35.1-43.9 [facility] Hematocrit Auto (Bld) [Volum e fraction]Ordered By: Tonny Aquino on 02-12-2024 Hematocrit (Bld) [Volume fraction] 45.9 % 40-54 [facility] Immature granulocytes/100 WB C Auto (Bld)Ordered By: Tonny Aquino on 02-12-2024 Immature granulocytes/100 WBC (Bld) 0.200 % 0.0-0.9 [facility] Comment on above: IG% - Immature Granu locytes (promyelocytes, myelocytes and metamyelocytes) > 1% indicates that a LEFT SHIFT is Present. Laboratory - Chemistry and C hemistry - challengeOrdered By: Tonny Auqino on 02-12-2024 Ferritin [Mass/Vol] 275 ng/mL 26-388 [facility] - Hematology and Cell countsOrdered By: Tonny Aquino on 02-12-2024 MCH (RBC) [Entitic mass] 29.3 pg 27.0-32.0 [facility] MCHC (RBC) [Mass/Vol] 32.9 g/dL 32-36 [facility] Nucleated RBC/100 WBC (Bld) [Ratio] 0 % 0-5 [facility] Platelet mean volume (Bld) [Entitic vol] 9.9 fL 6.2-12.0 [facility] Platelets (Bld) [#/Vol] 229 10*3/uL 150-450 [facility] RBC Auto (Bld) [#/Vol]Ordere d By: Tonny Aquino on 02-12-2024 RBC (Bld) [#/Vol] 5.15 10*6/uL 4.6-6.2 [facility] Serum or plasma testosterone free measurement (mass/volume)Ordered By: Tonny Aquino on 02-12-2024 Testosterone Free [Mass/Vol] 7.5 pg/mL 8.7-25.1 [facility] Comment on above: Performed at: [facility] - [address] [id number] Director: Jose Robertson MD, Phone: [phone] Basophil percentageOrdered B y: Tonny Kenia on 01-21-2024 Basophil percentage See comment [facility] Comment on above: TEST RESULTS LIMITST estosterone, Free/Tot EquilibTestosterone 294 ng/dL [id number] male reference interval is based on a population ofhealthy nonobese males (BMI <30) between 19 and 39 years old.Berhane et.al. JCEM 2017,102;7069-5343. PMID: 80029004.Testosterone,Free 5.00-21.00Unable to calculate result since non-numeric result obtained for component test.% Free Testosterone 1.50-4.20Test not performed. Due to technical problems in testing, a valid result could not be obtained. The remaining specimen was not sufficient for additional testing. TESTING PERFORMED AT [facility]. ORIGINAL REPORT ON FILE IN LAB CONTAINS ADDITIONAL TEST SITE INFORMATION. Free testosterone percentage Ordered By: Tonny Aquino on 01-21-2024 Testosterone Free/Testosterone.tot al [Mass fraction] Not Reportable [facility] Serum or plasma testosterone free measurement (mass/volume)Ordered By: Tonny Aquino on 01-21-2024 Testosterone Free [Mass/Vol] Not Reportable [facility] Encounters Encounter Date Encounter Type Care Provider Facility Start: 07-07-2025 ambulatory [facility] Facility: [facility] Start: 08-03-2024 End: 08-03-2024 ambulatory [facility] Facility:[facility] Start: 02-12-2024 End: 02-12-2024 ambulatory [facility]ital Work Phone: Start: 02-12-2024 End: 02-12-2024 Patient encounter procedure [facility] Start: 01-21-2024 End: 01-21-2024 ambulatory [facility] Work Phone: Start: 01-21-2024 End: 01-21-2024 Patient encounter procedure [facility], [facility] Villarreal [facility] Plan of Treatment Date Care Activity Detail Author Serum testosterone measurement [facility] Testosterone Free [M ass/volume] in Serum or Plasma [facility] Testosterone measurement [facility] Immunizations Immunization Date Immunization Notes Care Provider Fa cility 09-21-2021 tetanus toxoid, redu pedro diphtheria toxoid, and acellular pertussis vaccine, adsorbed [facility] Payers Date Payer Category Payer Self-pay [id number] 2024 Unknown [id number] 2017 Unknown [facility] [place] [id number] Unknown [id number] Unknown [id number] Social History Date Type Detail Facility Start: 01-04-2022 End: 01-04-2022 Tobacco smoking status NHIS Unknown if ever smoked [facility] Start: 11-06-2020 None [facility] Start: 11-06-2020 Spouse/ Signif icant Other [facility] Start: 11-06-2020 Non-smoker [facility] Start: 1990 Sex Assigned At Male [facility] Evaluation note Note Date & Type Note Facility Evaluation note No assessment information availa ble [facility] Work Phone: Family History No Family History Records Found Relationship Condition Age at Onset Recorded Date/T buck Unknown Family History?Cancer Unknown Decemb er 2019 1:24pm Family History?No pe rtinent history Unknown November 06, 2020 1:24pm Relationship Condition Age at Onset Recorded Date/T buck Unknown Family History?Cancer Unknown Decemb er 2019 2:24pm Family History?No pe rtinent history Unknown November 06, 2020 2:24pm Advance Directives No Advanced Directives Records Found Advance Directive Response Recorded Date/ Time Living Will No September 21 7:17pm Power of Barrel Washer Machine No September 21, 2021 7:17pm Advance Directive Response Recorded Date/ Time Living Will No September 21 8:17pm Power of Barrel Washer Machine No September 21, 2021 8:17pm Summary Purpose Additional Source Comments Care Teams (unrecognized sec tion and content) Team Status: Active Member Role Status Dates Dr. Tonny Aquino DO Family Provider Active Dr. Tonny Aquino DO Primary Care Provider Active Team Status: Inactive Member Role Status Dates Dr. Tonny Aquino DO Primary Care Provider, Attendin g Provider Active Team Status: Inactive Member Role Status Dates Dr. Tonny Aquino DO Primary Care Prov ider, Attending Provider, Referring Provider Active Goals (unrecognized section and content) Goals may be documented in a n alternate sectionGoals may be documented in an alternate section (unrecognized sect ion and content) No Status Records Found INFORMATION SOURCE (unrecogn ized section and content) DATE CREATED AUTHOR 07/09/2025 [facility] FOR RECORDS PERTAINING TO PATIENTS WHO ARE OR HAVE BEEN ENROLLED IN A CHEMICAL DEPENDENCY/SUBSTANCEABUSE PROGRAM, SOME INFORMATION MAY BE OMITTED. This clinical summary was aggregated from multiple sources. Caution should be exercised in using it in the provision of clinical care. This summary normalizes information from multiple sources, and as a consequence, information in this document may materially change the coding, format and clinical context of patient data. In addition, data may be omitted in some cases. CLINICAL DECISIONS SHOULD BE BASED ON THE PRIMARY CLINICAL RECORDS. [facility]. provides no warranty or guarantee of the accuracy or completeness of information in this document.
== END | disposition home or self-care (01) ==
PROVIDERS: PCP Family Medicine; Referring Provider Family Medicine; Visit Provider Family Medicine
DX: E29.1 Testicular hypofunction (principal)
CPT/HCPCS: 36415; 84403; 85025